=== PATIENT | male | born 1955 | race Caucasian/White ===

== ENCOUNTER → 2017-01-04 | Outpatient (CLI) | payer OTHER ==
[~2017-01-04] MED LIST: MULT-506 PO
--- NOTE | 2017-01-04 11:08 | DIAGNOSTIC IMAGING REPORT ---
CHEST 2 VIEWS ROUTINE CLINICAL HISTORY: J18.9 PNEUMONIA dyspnea COMPARISON STUDY: 03/10/2015 FINDINGS: The bones soft tissues and hemidiaphragms are normal. The cardiomediastinal silhouette is normal. The lungs are clear. The pulmonary vasculature is normal. IMPRESSION: Negative chest. Electronically signed by: Erickson Andrade M.D. 01/04/2017 11:07 AM Dictated Date/Time: 01/04/2017 11:06 AM
== END | disposition home or self-care (01) ==
LOC: C.RAD1850 10:41
PROVIDERS: ATTEND Family Medicine
DX: J18.9 Pneumonia, unspecified organism (principal)

== ENCOUNTER 2023-11-15 13:55 | Inpatient (IN) ==
--- NOTE | 2023-11-15 14:18 | ED Triage Note ---
Date of Service November 15, 2023 Provider in Triage Author: Nereida Solis History of Present Illness This patient was briefly evaluated while in triage. An abbreviated physical exam was performed. This patient is a 68-year-old Male who presents to the ED for evaluation of fever and right groin pain since Sunday. Pain radiates to RLQ and back occasionally too. Notes strong odor to urine and increased frequency. History of hernia repair bilaterally. Denies other abdominal surgeries. Denies history of frequent UTIs or kidney stones. Physical Exam Constitutional: alert and oriented x3. no acute distress. HEENT: normocephalic, atraumatic. normal conjunctiva.PERRLA. EOM's grossly intact. Respiratory: equal chest rise. normal respiratory effort, no accessory muscle use. Cardiovascular: regular rate and rhythm. MSK: moves all 4 extremities spontaneously Psych:appropriate mood and affect. Initial orders for labs and / or imaging were placed and patient was placed in the waiting area until a bed is available. Please see further documentation for the full ED course.
[2023-11-15 15:27] LABS: Basophils # (auto) 0.03 K/uL (0.00-0.20); Basophils % (auto) 0.2 %; Eosinophils # (auto) 0.12 K/uL (0.00-0.50); Eosinophils % (auto) 0.9 %; Hemoglobin 18.4 g/dl (14.0-18.0); Immature Granulocytes # (auto) 0.05 K/uL (0.01-0.20); Immature Granulocytes % (auto) 0.4 %; Lymphocytes % (auto) 6.1 %; Mean Corpuscular Hemoglobin 29.7 pg (25.0-34.0); Mean Corpuscular Hgb Conc 34.7 g/dL (32.0-36.0); Mean Corpuscular Volume 85.6 fL (80.0-100.0); Mean Platelet Volume 11.1 fL (9.4-12.4); Monocytes # (auto) 0.89 K/uL (0.11-0.59); Monocytes % (auto) 6.8 %; Neutrophils # (auto) 11.22 K/uL (1.40-6.50); Neutrophils % (auto) 85.6 %; Platelet Count 201 K/uL (130-400); RDW Coefficient of Variation 13.2 % (11.5-14.5); RDW Standard Deviation 41.1 fL (36.4-46.3); Red Blood Count 6.19 M/uL (4.70-6.10); White Blood Count 13.11 K/ul (4.8-10.8)
[2023-11-15 15:46] LABS: Albumin Globulin Ratio 1.1 (0.9-2); Appearance Urine Cloudy (Clear); BUN Creatinine Ratio 18.6 (10-20); Bacteria Urine Automated 4+ (Negative); Bilirubin Urine Negative (Negative); Bilirubin,Total 1.6 mg/dl (0.2-1.0); Blood Urine 3+ (Negative); Calcium 8.8 mg/dl (8.6-10.3); Color Urine Dark Yellow; Epithelial Cell Urine Auto 0-5 /lpf (0-5); Est GFR (African American) 88.4 ml/min; Est GFR (Non-African American) 76.2 ml/min; Globulin 3.5 gm/dl (2.5-4.0); Glucose Urine UA Negative (Negative); Ketones Urine 1+ (Negative); Leukocyte Esterase Urine 2+ (Negative); Nitrite Urine Positive (Negative); Potassium 3.9 mmol/L (3.5-5.1); Protein Urine 1+ (Negative); Specific Gravity Urine 1.025 (1.000-1.030); Total Protein 7.5 gm/dl (6.0-8.3); Urobilinogen Urine Positive (Negative); WBC Urine Automated >30 /hpf (0-5); pH Urine 5.5 (4.5-7.5)
[2023-11-15] MEDS ORDERED: cefTRIAXone SODIUM 2,000 MG/50 ML BAG IV STA (16:41)
--- NOTE | 2023-11-15 17:05 | Ultrasound Report ---
SCROTAL ULTRASOUND CLINICAL HISTORY: Right groin pain COMPARISON STUDY: CT of the abdomen and pelvis August 07, 2020. TECHNIQUE: Grayscale and color and duplex Doppler sonography of the scrotum was performed. FINDINGS: The right testis measures 3.3 x 3.2 cm and the left measures 3.4 x 2.5 x 1.9 cm. Color flow within each testis is symmetric. There is no testicular mass. A few tiny bilateral epididymal cysts are noted. There is mild hypervascularity of the right epididymal tail. A few benign right inguinal l ymph nodes were noted. No right groin abnormality was identified. IMPRESSION: 1. Normal sonographic appearance of the testes. 2. Mild hypervascularity of the right epididymal tail. This favors epididymitis. ACT 112: Negative or not required by law. Electronically signed by: Carlitos Prescott M.D. 11/15/2023 5:04 PM
[2023-11-15] MEDS ORDERED: SODIUM CHLORIDE 0.9% 1,000 ML IV ONE ×2 (18:07→19:49)
[2023-11-15] MEDS ORDERED: KETOROLAC TROMETHAMINE 15 MG/ML VIAL IV ONE (18:08)
[2023-11-15] MEDS ORDERED: OPTIRAY 320 500ml IV ONE (18:19)
--- NOTE | 2023-11-15 18:36 | CT Scan Report ---
CT SCAN OF THE ABDOMEN AND PELVIS WITH IV CONTRAST CLINICAL HISTORY: Right flank pain. COMPARISON STUDY: Abdominal CT dated 08/07/2020. TECHNIQUE: Following the IV administration of 86 cc of Optiray 320, CT scan of the abdomen and pelvi s is performed from the lung bases to the proximal femora. Images are reviewed in the axial, sagittal , and coronal planes. IV contrast was administered without complication. A dose lowering technique wa s utilized adhering to the principles of ALARA. CT DOSE: 1403.75 mGy.cm FINDINGS: Lung bases: The heart is normal in size and without pericardial effusion. The lung bases are clear no ting bibasilar atelectasis. There is a small hiatal hernia. Liver: The contrast-enhanced liver is normal in size, contour, and attenuation. There is no intrahepa tic biliary ductal dilatation. The hepatic veins and portal veins are patent. Gallbladder: Unremarkable. Spleen: Calcification of the splenic capsule is unchanged. The spleen is mildly enlarged measuring 14 .2 cm in length. Pancreas: Unremarkable. Adrenal glands: Unremarkable. Kidneys: The contrast enhanced kidneys are normal in size and without hydronephrosis. The kidneys enh ance symmetrically. Urothelial thickening and enhancement is identified involving the distal right ur eter. A 2.3 cm cyst is seen on the left. Abdominal vasculature: The abdominal aorta is normal in course and caliber noting mild to moderate at herosclerotic calcification. Bowel: There are scattered colonic diverticula without CT evidence of acute diverticulitis. No bowel obstruction is seen. The appendix is well-visualized and normal. Peritoneum: There is no intraperitoneal free air or abdominal ascites. There is a small fat-containin g umbilical hernia. Lymphadenopathy: None. Pelvic viscera: The prostate gland is markedly enlarged and heterogeneous. A multiloculated fluid col lection is suggested within the left aspect of the prostate gland on image #380. This measures 3.1 x 2.3 cm and is suspicious for a prostatic abscess. There is periprostatic inflammation. The bladder wa ll is thickened with pericystic inflammation. There are some vesicles also appear edematous. Skeletal structures: There is mild to moderate lumbosacral spondylosis. No lytic or blastic lesions a re seen. IMPRESSION: 1. There is evidence of cystitis/prostatitis with a probable 3.1 cm prostatic abscess. Correlate with clinical findings and urinalysis. 2. Urothelial thickening and enhancement is seen involving the distal right ureter. This may represen t ascending urinary tract infection. 3. Mild splenomegaly. 4. Additional findings as above. ACT 112: Negative or not required by law. Electronically signed by: Joel Beltran M.D. 11/15/2023 6:34 PM
[2023-11-15] MEDS ORDERED: PIPERACILLIN/TAZOBACTAM 4.5 GM/100 ML BAG IV ONE (18:59)
[2023-11-15] MEDS ORDERED: METOPROLOL SUCC 25MG EXT REL TAB PO STA (19:48)
[2023-11-15 20:05] LABS: Magnesium 2.1 mg/dl (1.7-2.4)
--- NOTE | 2023-11-15 20:29 | Urology Consultation ---
<Statement entered by Senthil Nye MD - 11/16/23 10:01> I have discussed Mr. Gutierrez's case with Ender Stahl PA-C and agree with the above documentation. CT findings concerning for prostatic abscess. To start with he needs antibiotics and supportive care. Urology will reevaluate whether he requires transurethral unroofing of prostatic abscess. Patient to be made n.p.o. at midnight. -Senthil Nye MD. Date of Consultation November 15, 2023 Assessment & Plan (1) Prostate abscess: The patient is being admitted on the hospitalist service. From a urologic perspective we recommend the following: Broad-spectrum antibiotics in form of Zosyn has been initiated and I would recommend continuous antibiotic Patient has evidence of urinary tract infection on urinalysis. A urine culture has been sent and is pending. I have also ordered blood cultures and we will follow for the results of these Provide analgesics Provide antiemetics Provide IV fluid for hydration Follow serial lab At the present time the patient is hemodynamically stable without tachycardia or fever. He does not have evidence of acute kidney. I do not feel an emergent urologic procedure is required at this time, but due to the size of the prostate abscess he may require cystoscopy with unroofing of this abscess. I would therefore recommend making the patient n.p.o. after midnight tonight (he may have clear liquids tonight) and he will tentatively be scheduled for cystoscopy tomorrow with [facility] physician group urology Additional recommendations be forthcoming based on his clinical course as unfolds History of Present Illness Reason for Consultation: Prostate abscess History of Present Illness This is a 68-year-old male who presented the emergency department secondary to approximately 3 days of fevers. Patient notes he has also had occasional shakes and chills and notes that his temperatures have been as high as 101. Since his fevers began he developed some right groin and right testicular pain which ultimately prompted his visit to the emergency department. He denies any pain in the saddle region. He does note urinary frequency without dysuria or hematuria. He does note that his urine stream appears to be somewhat weaker but he feels as though he is emptying his bladder completely. He denies any back or flank pain. Patient does note that he follows locally with Dr. Denis Davila of [facility] urology. He notes that he does have a history of enlarged prostate and has had prostate biopsies but to the best of his knowledge all of his biopsies have been negative for malignancy. The patient does note that his most recent oral intake of solid food was approximate 10:00 AM today. He has had some water at approximately 6:00 PM this evening Since arrival to the hospital patient has had labs and imaging which independent reviewed. The patient did have a scrotal ultrasound. This procedure showed the patient had some hypervascularity of the right epididymal tail favoring epididymitis. He also underwent a CT scan of the abdomen pelvis. This showed the patient had evidence of cystitis and prostatitis with a multiloculated fluid collection in the left aspect of the prostate gland. This collection measures approximately 3.1 x 2.3 cm and is concerning for a prostate abscess. No intraperitoneal free air or abdominal ascites was noted on this study. The appendix was noted to be normal on this study labs include a CBC her white blood cell count was elevated at 13.1 hemoglobin and hematocrit are 18.4 and 53.0. Platelet count was within the normal range. Chemistry profile showed sodium and potassium along with the BUN and creatinine were normal. Patient did have a urinalysis that showed cloudy urine which was positive for nitrites. There is also 2+ leukocyte Estrace and greater than 30 white blood cells per high-power field. There is 4+ bacteria on this study. At the time of my interview the patient was resting comfortably in bed and he was in no distress Allergies Allergy/AdvReac Type Severity Reaction Status Date / Time lisinopril AdvReac Mild Headache Verified 11/15/23 18:52 Home Medications Medication Instructions Recorded Confirmed Type multivitamin 1 tab PO DAILY 08/07/20 11/15/23 History ibuprofen 200 mg tablet 400 - 600 mg PO Q8 PRN Fever Or 11/15/23 11/15/23 History Pain metoprolol succinate 25 mg 25 mg PO QAM 11/15/23 11/15/23 History tablet,extended release 24 hr Patient History Surgical History History of esophagogastroduodenoscopy (EGD) S/P shoulder surgery Social History Smoking Status: Never smoker Preferred Language: Wallisian Feels Safe at Home: Yes Review of Systems Constitutional: + fever and + chills Ear, Nose, Mouth, Throat: no ear pain Respiratory: no cough Cardiovascular: no chest pain Gastrointestinal: as per Subjective / HPI Genitourinary: + as per Subjective / HPI Musculoskeletal: no back pain Integumentary: no rash Neurologic: no localized weakness Physical Exam Constitutional: WD/WN, vitals as above Eyes: no conjunctival abnormality ENMT: Ears: no hearing impairment and no external ear abnormality Mouth: no oropharynx abnormality Neck: trachea midline Respiratory: normal respiratory effort; no respiratory distress and no labored breathing Cardiovascular: Rate/Rhythm: regular rate and regular rhythm Gastrointestinal (Abdomen): Abdomen is soft and nonrigid. It is nondistended. There is no rebound tenderness or guarding. The patient did have pain with palpation in his right groin at the inguinal crease. I do not appreciate any hernias in this area. There is no skin discoloration or masses in this area Musculoskeletal: No calf tenderness Skin: no rashes Neurologic: moves all extremities Psychiatric: A+Ox3, euthymic affect Genitourinary: No CVA tenderness with percussion bilaterally. The patient's genital/perineum was examined. Patient had a normal appearing circumcised penis. There is no pain or masses with palpation of the left testicle. I do not appreciate any masses in the right testicle but the area of the right testicle was painful to palpation. There is no erythema or crepitus in the scrotum. There is no erythema or crepitus in the perineal area Of note, rectal exam was deferred at this time due to the noted prostate abscess on CT scan Results & Data Vital Signs (Past 12 Hours) Vital Signs Temp Pulse Pulse Resp BP BP Pulse Ox 11/15/23 18:43 85 16 160/92 H 94 11/15/23 17:27 92 H 18 144/92 H 96 11/15/23 14:16 36.6 C 99 H 18 161/104 H 95 O2 Del Method 11/15/23 18:43 Room Air 11/15/23 17:27 Room Air 11/15/23 14:16 Room Air PG Care Time/CCT Total # of Minutes Spent Total Time Spent with Patient: Total time spent is greater than 50% in coordination of care (as documented) at patient's floor/unit and/or counseling patient: Coding Level of Care Code 08940 INT INP/OBS CARE MIN Diagnoses Prostate abscess N41.2
--- NOTE | 2023-11-15 21:34 | History & Physical Report ---
Date of Service November 15, 2023 Assessment & Plan (1) Prostate abscess: Plan: Complicated UTI History of BPH No sepsis for now PAF, patient NSR hypertension, slightly elevated GERD/eosinophilic esophagitis Asymptomatic transaminitis GMF Ciprofloxacin Urology consult Re: Prostatic abscess Patient already seen at the ER by provider who recommends n.p.o. status after midnight in anticipation of procedure in a.m. Follow LFTs, liver ultrasound if with progression DVT prophylaxis. SCDs Re: Possible procedure Full code Text document was generated using [id number] voice recognition software. It may contain grammatical or spelling errors. Kindly contact undersigned for clarification of any documentation item in question. History of Present Illness Chief Complaint: Groin pain Primary Care Provider: Esequiel Choi DO History obtained from patient, family, and records. Medical history significant for PAF, hypertension, BPH, GERD/eosinophilic esophagitis, ROSENDO as per records, liposarcoma status post surgery. Last confinement September 2011 for RLE cellulitis. 3 days history of fever chills associated with achy right groin/testicular pain. No hematuria. No previous episodes. Denies upper abdominal pain, vomiting, jaundice. IV Zosyn administered at the ER. Medical History as above Surgical History : Carpal tunnel surgery, inguinal hernia repair, shoulder liposarcoma removal, talus fracture surgery, wrist surgery Family History : Prostate cancer, CAD Personal/Social history : Non-smoker, no EtOH intake, businessman Allergies Allergy/AdvReac Type Severity Reaction Status Date / Time lisinopril AdvReac Mild Headache Verified 11/15/23 18:52 Home Medications Medication Instructions Recorded Confirmed Type multivitamin 1 tab PO DAILY 08/07/20 11/15/23 History ibuprofen 200 mg tablet 400 - 600 mg PO Q8 PRN Fever Or 11/15/23 11/15/23 History Pain metoprolol succinate 25 mg 25 mg PO QAM 11/15/23 11/15/23 History tablet,extended release 24 hr Past Med/Surg History Surgical History History of esophagogastroduodenoscopy (EGD) S/P shoulder surgery Social History Smoking Status: Never smoker Second Hand Exposure: No; Do You Dip or Chew Tobacco: No; Hx Alcohol Use: No Hx Substance Use: No Preferred Language: Luxembourger Communication Ability: Effective Team Assistant Required: No Beliefs That Will Affect Care: None Current Living Situation: Spouse Other Information That Helps Us Care for You: No Feels Safe at Home: Yes Safety Concerns: Feels Safe At This Time Assistive Devices: None Review of Systems Review of Systems: As per HPI, all other systems reviewed and negative Physical Exam Physical Exam: GENERAL: Comfortable, pleasant, no respiratory distress SKIN: Normal color, warm HEENT: Partial alopecia, [place] palpebral conjunctivae, no ptosis, dry buccal mucosa NECK : Supple, no tenderness CHEST : CTA, no tenderness HEART : RRR, no obvious murmurs ABDOMEN: Some distention, suprapubic tenderness EXTREMITIES : No LE swelling/tenderness, no other conspicuous deformities noted NEUROLOGIC : Coherent, no facial asymmetry, no other gross focality Results & Data Results & Data Vital Signs (Past 12 Hours) Vital Signs Temp Pulse Pulse Resp BP BP Pulse Ox 11/15/23 21:00 93 11/15/23 18:43 85 16 160/92 H 94 11/15/23 17:27 92 H 18 144/92 H 96 11/15/23 14:16 36.6 C 99 H 18 161/104 H 95 O2 Del Method 11/15/23 21:00 Room Air 11/15/23 18:43 Room Air 11/15/23 17:27 Room Air 11/15/23 14:16 Room Air Laboratory Results Laboratory Results WBC 13.11 K/ul (4.8-10.8) H 11/15/23 14:35 RBC 6.19 M/uL (4.70-6.10) H 11/15/23 14:35 Hgb 18.4 g/dl (14.0-18.0) H 11/15/23 14:35 Hct 53.0 % (42.0-52.0) H 11/15/23 14:35 MCV 85.6 fL (80.0-100.0) 11/15/23 14:35 MCH 29.7 pg (25.0-34.0) 11/15/23 14:35 MCHC 34.7 g/dL (32.0-36.0) 11/15/23 14:35 RDW Std Deviation 41.1 fL (36.4-46.3) 11/15/23 14:35 RDW Coeff of Kiko 13.2 % (11.5-14.5) 11/15/23 14:35 Plt Count 201 K/uL (130-400) 11/15/23 14:35 MPV 11.1 fL (9.4-12.4) 11/15/23 14:35 Immature Gran % (Auto) 0.4 % 11/15/23 14:35 Neut % (Auto) 85.6 % 11/15/23 14:35 Lymph % (Auto) 6.1 % 11/15/23 14:35 [place] % (Auto) 6.8 % 11/15/23 14:35 Eos % (Auto) 0.9 % 11/15/23 14:35 Baso % (Auto) 0.2 % 11/15/23 14:35 Neut # (Auto) 11.22 K/uL (1.40-6.50) H 11/15/23 14:35 Lymph # (Auto) 0.80 K/uL (1.20-3.40) L 11/15/23 14:35 [place] # (Auto) 0.89 K/uL (0.11-0.59) H 11/15/23 14:35 Eos # (Auto) 0.12 K/uL (0.00-0.50) 11/15/23 14:35 Baso # (Auto) 0.03 K/uL (0.00-0.20) 11/15/23 14:35 Immature Gran # (Auto) 0.05 K/uL (0.01-0.20) 11/15/23 14:35 Sodium 136 mmol/L (136-145) 11/15/23 14:35 Potassium 3.9 mmol/L (3.5-5.1) 11/15/23 14:35 Chloride 102 mmol/L (98-107) 11/15/23 14:35 Carbon Dioxide 24 mmol/L (21-32) 11/15/23 14:35 Anion Gap 10 (3-11) 11/15/23 14:35 BUN 19 mg/dl (6-23) 11/15/23 14:35 Creatinine 1.02 mg/dl (0.6-1.4) 11/15/23 14:35 Est Cr Clr Drug Dosing 82.0 ml/min 11/15/23 14:35 Est GFR ( Amer) 88.4 ml/min 11/15/23 14:35 Est GFR (Non-Af Amer) 76.2 ml/min 11/15/23 14:35 BUN/Creatinine Ratio 18.6 (10-20) 11/15/23 14:35 Glucose 93 mg/dl (70-99(Fasting)) 11/15/23 14:35 Calcium 8.8 mg/dl (8.6-10.3) 11/15/23 14:35 Magnesium 2.1 mg/dl (1.7-2.4) 11/15/23 14:35 Total Bilirubin 1.6 mg/dl (0.2-1.0) H 11/15/23 14:35 AST 85 U/L (13-39) H 11/15/23 14:35 ALT 81 U/L (7-52) H 11/15/23 14:35 Alkaline Phosphatase 138 U/L (34-104) H 11/15/23 14:35 Total Protein 7.5 gm/dl (6.0-8.3) 11/15/23 14:35 Albumin 4.0 gm/dl (3.4-5.0) 11/15/23 14:35 Globulin 3.5 gm/dl (2.5-4.0) 11/15/23 14:35 Albumin/Globulin Ratio 1.1 (0.9-2) 11/15/23 14:35 Lipase 12 U/L (11-82) 11/15/23 14:35 Urine Color Dark Yellow 11/15/23 14:35 Urine Appearance Cloudy (Clear) A 11/15/23 14:35 Urine pH 5.5 (4.5-7.5) 11/15/23 14:35 Ur Specific [place] 1.025 (1.000-1.030) 11/15/23 14:35 Urine Protein 1+ (Negative) H 11/15/23 14:35 Urine Glucose (UA) Negative (Negative) 11/15/23 14:35 Urine Ketones 1+ (Negative) H 11/15/23 14:35 Urine Blood 3+ (Negative) H 11/15/23 14:35 Urine Nitrite Positive (Negative) A 11/15/23 14:35 Urine Bilirubin Negative (Negative) 11/15/23 14:35 Urine Urobilinogen Positive (Negative) H 11/15/23 14:35 Ur Leukocyte Esterase 2+ (Negative) H 11/15/23 14:35 Urine WBC (Auto) >30 /hpf (0-5) H 11/15/23 14:35 Urine RBC (Auto) 5-10 /hpf (0-4) H 11/15/23 14:35 U Hyaline Cast (Auto) 1-5 /lpf (0-5) 11/15/23 14:35 U Epithel Cells (Auto) 0-5 /lpf (0-5) 11/15/23 14:35 Urine Bacteria (Auto) 4+ (Negative) H 11/15/23 14:35 Impressions Scrotum Ultrasound 11/15/23 14:21 SCROTAL ULTRASOUND CLINICAL HISTORY: Right groin pain COMPARISON STUDY: CT of the abdomen and pelvis August 07, 2020. TECHNIQUE: Grayscale and color and duplex Doppler sonography of the scrotum was performed. FINDINGS: The right testis measures 3.3 x 3.2 cm and the left measures 3.4 x 2.5 x 1.9 cm. Color flow within each testis is symmetric. There is no testicular mass. A few tiny bilateral epididymal cysts are noted. There is mild hypervascularity of the right epididymal tail. A few benign right inguinal lymph nodes were noted. No right groin abnormality was identified. IMPRESSION: 1. Normal sonographic appearance of the testes. 2. Mild hypervascularity of the right epididymal tail. This favors epididymitis. ACT 112: Negative or not required by law. Electronically signed by: Carlitos Prescott M.D. 11/15/2023 5:04 PM Abdomen/Pelvis CT 11/15/23 18:07 CT SCAN OF THE ABDOMEN AND PELVIS WITH IV CONTRAST CLINICAL HISTORY: Right flank pain. COMPARISON STUDY: Abdominal CT dated 08/07/2020. TECHNIQUE: Following the IV administration of 86 cc of Optiray 320, CT scan of the abdomen and pelvis is performed from the lung bases to the proximal femora. Images are reviewed in the axial, sagittal, and coronal planes. IV contrast was administered without complication. A dose lowering technique was utilized adhering to the principles of ALARA. CT DOSE: 1403.75 mGy.cm FINDINGS: Lung bases: The heart is normal in size and without pericardial effusion. The lung bases are clear noting bibasilar atelectasis. There is a small hiatal hernia. Liver: The contrast-enhanced liver is normal in size, contour, and attenuation. There is no intrahepatic biliary ductal dilatation. The hepatic veins and portal veins are patent. Gallbladder: Unremarkable. Spleen: Calcification of the splenic capsule is unchanged. The spleen is mildly enlarged measuring 14.2 cm in length. Pancreas: Unremarkable. Adrenal glands: Unremarkable. Kidneys: The contrast enhanced kidneys are normal in size and without hydronephrosis. The kidneys enhance symmetrically. Urothelial thickening and enhancement is identified involving the distal right ureter. A 2.3 cm cyst is seen on the left. Abdominal vasculature: The abdominal aorta is normal in course and caliber noting mild to moderate atherosclerotic calcification. Bowel: There are scattered colonic diverticula without CT evidence of acute div erticulitis. No bowel obstruction is seen. The appendix is well-visualized and normal. Peritoneum: There is no intraperitoneal free air or abdominal ascites. There is a small fat-containing umbilical hernia. Lymphadenopathy: None. Pelvic viscera: The prostate gland is markedly enlarged and heterogeneous. A multiloculated fluid collection is suggested within the left aspect of the prostate gland on image #380. This measures 3.1 x 2.3 cm and is suspicious for a prostatic abscess. There is periprostatic inflammation. The bladder wall is thickened with pericystic inflammation. There are some vesicles also appear edematous. Skeletal structures: There is mild to moderate lumbosacral spondylosis. No lytic or blastic lesions are seen. IMPRESSION: 1. There is evidence of cystitis/prostatitis with a probable 3.1 cm prostatic abscess. Correlate with clinical findings and urinalysis. 2. Urothelial thickening and enhancement is seen involving the distal right ureter. This may represent ascending urinary tract infection. 3. Mild splenomegaly. 4. Additional findings as above. ACT 112: Negative or not required by law. Electronically signed by: Joel Beltran M.D. 11/15/2023 6:34 PM Diagnostic Findings EKG as per my interpretation : Rate 80, NSR, normal axis, no ischemia, QTc 440
[2023-11-15] MEDS ORDERED: ACETAMINOPHEN 500 MG TAB PO PRN (21:38)
[2023-11-15] MEDS ORDERED: MoRPHine SULFATE 4 MG/ML 1 ML CARP\\VIAL IV PRN (21:38)
[2023-11-15] MEDS ORDERED: oxyCODONE HCL IR 5 MG TAB (IMMEDIATE RELEASE) PO PRN (21:38)
[2023-11-15] MEDS ORDERED: PROMETHAZINE HCL 6.25 MG in SODIUM CHLORIDE 0.9% 50 ML IV PRN (21:38)
--- NOTE | 2023-11-15 23:03 | Emergency Department Note ---
Impression & Plan Sepsis, Prostate abscess, Acute epididymitis ED Provider Note NAME: TAHIRA SONI AGE: 68 SEX: M : 1955 ARRIVES VIA: Walk-In INFORMANT: Patient ED PROVIDER(S): Stephen Coronel DO CHIEF COMPLAINT: Right groin pain HPI: Patient is a 68-year-old male who presents ER for right groin pain which has been going on since Sunday. He admits to feeling hot and cold. Does have some nausea but no vomiting. Does feel little lightheaded. No chest pain or shortness of breath. No dysuria urgency or frequency. He notes the pain is now focal in his right testicle. No pain with moving his bowels. ADDITIONAL HISTORY OBTAINED: Per HPI Chronic Medical/Social Conditions Affecting Care: Per HPI PAST MEDICAL HISTORY:See Below PAST SURGICAL HISTORY:See Below FAMILY HISTORY:See Below SOCIAL HISTORY:See Below HOME MEDICATIONS:See Below ALLERGIES:See Below VITALS:See Below PHYSICAL EXAMINATION: GENERAL: Sitting up in bed, alert, slightly ill-appearing, disheveled EYE EXAM: normal conjunctiva. PERRL and EOM's grossly intact. OROPHARYNX: no exudate, no erythema, lips, buccal mucosa, and tongue normal and mucous membranes are moist NECK: supple, no nuchal rigidity, no adenopathy, non-tender LUNGS: Clear to auscultation. Normal chest wall mechanics HEART: no murmurs, S1 normal and S2 normal ABDOMEN: abdomen soft, non-tender, normo-active bowel sounds, no masses, no rebound or guarding. : Right testicle is tender diffusely and slightly erythematous. UPPER EXTREMITIES: upper extremities are grossly normal. LOWER EXTREMITIES: No pitting edema. NEURO EXAM: Normal sensorium, cranial nerves II-XII grossly intact, normal speech, no gross weakness of arms, no gross weakness of legs. No drift. Finger to nose intact. Gross sensation intact. MEDICAL DECISION MAKING: Patient is a 68-year-old male who presents ER for the above-stated complaint. IV was established blood work was obtained. Labs show a leukocytosis of 13,000. Hemoglobin 18. BMP was unremarkable. T. bili at 1.6. LFTs was slightly elevated. Lipase was normal. UA is consistent with UTI. Ultrasound shows epididymitis. CT abdomen pelvis shows cystitis, prostatitis as well as prostate abscess. Patient was initially given Rocephin and fluids and then changed to Zosyn. Discussed with urology and they were agreeable for having patient admitted here. Discussed with hospitalist for further evaluation management treatment. Consults/Care Managements Discussions: Per MDM Triage Nursing notes reviewed. Limited review of prior medical records performed Vital Signs: reviewed and remarkable for tachy Differential diagnosis: Differential diagnosis includes etiologies such as sepsis, UTI, pneumonia, metabolic, electrolyte abnormalities, cardiac sources, intracerebral event, toxicologic, neurological, as well as others were entertained. ER treatment provided: See below Diagnostics interpreted by me include EKG and cardiac monitoring as listed below: -Cardiac Monitoring: An order was placed for continuous cardiac monitoring. The monitor shows a rate of 80 with sinus rhythm. -ECG: none -Laboratory studies:Interpreted by me as stated above in MDM and shown below. Imaging studies: Xrays: As interpreted by me:none CTs show: CT abdomen pelvis per my preliminary interpretation showed no obvious bowel obstruction CT abdomen pelvis per radiology showed abscess of the prostate Procedures:none Critical Care: None Past Med/Surg History Surgical History History of esophagogastroduodenoscopy (EGD) S/P shoulder surgery Social History Smoking Status: Never smoker Preferred Language: Mohawk Feels Safe at Home: Yes Allergies Allergies Allergy/AdvReac Type Severity Reaction Status Date / Time lisinopril AdvReac Mild Headache Verified 11/15/23 18:52 Home Meds Home Medications Medication Instructions Recorded Confirmed multivitamin 1 tab PO DAILY 08/07/20 11/15/23 ibuprofen 200 mg tablet 400 - 600 mg PO Q8 PRN Fever Or 11/15/23 11/15/23 Pain metoprolol succinate 25 mg 25 mg PO QAM 11/15/23 11/15/23 tablet,extended release 24 hr Results & Data (ED) Vital Signs Vital Signs - 24 hr 11/15/23 14:16 11/15/23 17:27 11/15/23 18:43 Temperature 36.6 C Temperature Source Temporal Artery Scan Pulse Rate 99 H Pulse Rate [Finger] 92 H 85 Pulse Rate from SpO2 Sensor Pulse Rhythm [Finger] Regular Pulse Strength [Finger] Normal Respiratory Rate 18 18 16 Respiratory Effort / Characteristics Non-Labored Spontaneous Non-Labored Spontaneous Respiratory Depth Normal Normal Respiratory Pattern Regular Regular Blood Pressure 161/104 H Blood Pressure [Right Arm] 144/92 H 160/92 H Blood Pressure Mean 123 Blood Pressure Mean [Right Arm] 109 114 Blood Pressure Position [Right Arm] Sitting Pulse Oximetry 95 96 94 Oxygen Delivery Method Room Air Room Air Room Air Sepsis Recent Fever Within 48 Hours Yes Sepsis New/Unexplained Change in Mental Status No Sepsis Action Taken by Nursing No Action Required 11/15/23 20:37 11/15/23 21:00 11/15/23 21:00 Temperature Temperature Source Pulse Rate 76 Pulse Rate [Finger] Pulse Rate from SpO2 Sensor 76 Pulse Rhythm [Finger] Pulse Strength [Finger] Respiratory Rate 22 Respiratory Effort / Characteristics Respiratory Depth Respiratory Pattern Blood Pressure 146/108 H Blood Pressure [Right Arm] Blood Pressure Mean 119 Blood Pressure Mean [Right Arm] Blood Pressure Position [Right Arm] Pulse Oximetry 93 93 Oxygen Delivery Method Room Air Sepsis Recent Fever Within 48 Hours Sepsis New/Unexplained Change in Mental Status Sepsis Action Taken by Nursing 11/15/23 21:00 Temperature Temperature Source Pulse Rate 79 Pulse Rate [Finger] Pulse Rate from SpO2 Sensor 79 Pulse Rhythm [Finger] Pulse Strength [Finger] Respiratory Rate 21 Respiratory Effort / Characteristics Respiratory Depth Respiratory Pattern Blood Pressure Blood Pressure [Right Arm] Blood Pressure Mean Blood Pressure Mean [Right Arm] Blood Pressure Position [Right Arm] Pulse Oximetry 93 Oxygen Delivery Method Sepsis Recent Fever Within 48 Hours Sepsis New/Unexplained Change in Mental Status Sepsis Action Taken by Nursing Laboratory Data 11/15/23 14:35 11/15/23 14:35 Lab Results 11/15/23 Range/Units 14:35 WBC 13.11 H (4.8-10.8) K/ul RBC 6.19 H (4.70-6.10) M/uL Hgb 18.4 H (14.0-18.0) g/dl Hct 53.0 H (42.0-52.0) % MCV 85.6 (80.0-100.0) fL MCH 29.7 (25.0-34.0) pg MCHC 34.7 (32.0-36.0) g/dL RDW Std Deviation 41.1 (36.4-46.3) fL RDW Coeff of Kiko 13.2 (11.5-14.5) % Plt Count 201 (130-400) K/uL MPV 11.1 (9.4-12.4) fL Immature Gran % (Auto) 0.4 % Neut % (Auto) 85.6 % Lymph % (Auto) 6.1 % [place] % (Auto) 6.8 % Eos % (Auto) 0.9 % Baso % (Auto) 0.2 % Neut # (Auto) 11.22 H (1.40-6.50) K/uL Lymph # (Auto) 0.80 L (1.20-3.40) K/uL [place] # (Auto) 0.89 H (0.11-0.59) K/uL Eos # (Auto) 0.12 (0.00-0.50) K/uL Baso # (Auto) 0.03 (0.00-0.20) K/uL Immature Gran # (Auto) 0.05 (0.01-0.20) K/uL Sodium 136 (136-145) mmol/L Potassium 3.9 (3.5-5.1) mmol/L Chloride 102 (98-107) mmol/L Carbon Dioxide 24 (21-32) mmol/L Anion Gap 10 (3-11) BUN 19 (6-23) mg/dl Creatinine 1.02 (0.6-1.4) mg/dl Est Cr Clr Drug Dosing 82.0 ml/min Est GFR ( Amer) 88.4 ml/min Est GFR (Non-Af Amer) 76.2 ml/min BUN/Creatinine Ratio 18.6 (10-20) Glucose 93 (70-99(Fasting)) mg/dl Calcium 8.8 (8.6-10.3) mg/dl Magnesium 2.1 (1.7-2.4) mg/dl Total Bilirubin 1.6 H (0.2-1.0) mg/dl AST 85 H (13-39) U/L ALT 81 H (7-52) U/L Alkaline Phosphatase 138 H (34-104) U/L Total Protein 7.5 (6.0-8.3) gm/dl Albumin 4.0 (3.4-5.0) gm/dl Globulin 3.5 (2.5-4.0) gm/dl Albumin/Globulin Ratio 1.1 (0.9-2) Lipase 12 (11-82) U/L Urine Color Dark Yellow Urine Appearance Cloudy A (Clear) Urine pH 5.5 (4.5-7.5) Ur Specific [place] 1.025 (1.000-1.030) Urine Protein 1+ H (Negative) Urine Glucose (UA) Negative (Negative) Urine Ketones 1+ H (Negative) Urine Blood 3+ H (Negative) Urine Nitrite Positive A (Negative) Urine Bilirubin Negative (Negative) Urine Urobilinogen Positive H (Negative) Ur Leukocyte Esterase 2+ H (Negative) Urine WBC (Auto) >30 H (0-5) /hpf Urine RBC (Auto) 5-10 H (0-4) /hpf U Hyaline Cast (Auto) 1-5 (0-5) /lpf U Epithel Cells (Auto) 0-5 (0-5) /lpf Urine Bacteria (Auto) 4+ H (Negative) Administered Medications Discontinued Medications Ceftriaxone Sodium (Rocephin) 2,000 mg in 50 mls @ 100 mls/hr IV NOW STA Stop: 11/15/23 17:10 Last Infusion: 11/15/23 19:06 Dose: Infused Documented By: Admin: 11/15/23 17:28 Dose: 100 mls/hr Documented By: LONDON Sodium Chloride (Nss) 1,000 mls @ 999 mls/hr IV .Q1H1M ONE Stop: 11/15/23 19:07 Last Infusion: 11/15/23 20:46 Dose: Infused Documented By: Admin: 11/15/23 19:06 Dose: 999 mls/hr Documented By: ROBERT Piperacillin Sod/Tazobactam Sod (Zosyn) 4.5 gm in 100 mls @ 200 mls/hr IV NOW ONE Stop: 11/15/23 19:28 Last Infusion: 11/15/23 20:46 Dose: Infused Documented By: Admin: 11/15/23 19:08 Dose: 200 mls/hr Documented By: ROBERT Ioversol (Optiray 320 500ml) 86 ml IV ONCE ONE Stop: 11/15/23 18:20 Last Admin: 11/15/23 18:20 Dose: 86 ml Documented By: GIRISH Ketorolac Tromethamine (Ketorolac Tromethamine 15 Mg/Ml Vial) 15 mg IV NOW ONE Stop: 11/15/23 18:09 Last Admin: 11/15/23 19:07 Dose: 15 mg Documented By: ROBERT Metoprolol Succinate (Metoprolol Succ 25mg Ext Rel Tab) 25 mg PO NOW STA Stop: 11/15/23 19:49 Last Admin: 11/15/23 20:40 Dose: 25 mg Documented By: ROBERT Imaging Data Radiologist's Impression: Scrotum Ultrasound 11/15/23 14:21 SCROTAL ULTRASOUND CLINICAL HISTORY: Right groin pain COMPARISON STUDY: CT of the abdomen and pelvis August 07, 2020. TECHNIQUE: Grayscale and color and duplex Doppler sonography of the scrotum was performed. FINDINGS: The right testis measures 3.3 x 3.2 cm and the left measures 3.4 x 2.5 x 1.9 cm. Color flow within each testis is symmetric. There is no testicular mass. A few tiny bilateral epididymal cysts are noted. There is mild hypervascularity of the right epididymal tail. A few benign right inguinal lymph nodes were noted. No right groin abnormality was identified. IMPRESSION: 1. Normal sonographic appearance of the testes. 2. Mild hypervascularity of the right epididymal tail. This favors epididymitis. ACT 112: Negative or not required by law. Electronically signed by: Carlitos Prescott M.D. 11/15/2023 5:04 PM Abdomen/Pelvis CT 11/15/23 18:07 CT SCAN OF THE ABDOMEN AND PELVIS WITH IV CONTRAST CLINICAL HISTORY: Right flank pain. COMPARISON STUDY: Abdominal CT dated 08/07/2020. TECHNIQUE: Following the IV administration of 86 cc of Optiray 320, CT scan of the abdomen and pelvis is performed from the lung bases to the proximal femora. Images are reviewed in the axial, sagittal, and coronal planes. IV contrast was administered without complication. A dose lowering technique was utilized adhering to the principles of ALARA. CT DOSE: 1403.75 mGy.cm FINDINGS: Lung bases: The heart is normal in size and without pericardial effusion. The lung bases are clear noting bibasilar atelectasis. There is a small hiatal hernia. Liver: The contrast-enhanced liver is normal in size, contour, and attenuation. There is no intrahepatic biliary ductal dilatation. The hepatic veins and portal veins are patent. Gallbladder: Unremarkable. Spleen: Calcification of the splenic capsule is unchanged. The spleen is mildly enlarged measuring 14.2 cm in length. Pancreas: Unremarkable. Adrenal glands: Unremarkable. Kidneys: The contrast enhanced kidneys are normal in size and without hydronephrosis. The kidneys enhance symmetrically. Urothelial thickening and enhancement is identified involving the distal right ureter. A 2.3 cm cyst is seen on the left. Abdominal vasculature: The abdominal aorta is normal in course and caliber noting mild to moderate atherosclerotic calcification. Bowel: There are scattered colonic diverticula without CT evidence of acute diverticulitis. No bowel obstruction is seen. The appendix is well-visualized and normal. Peritoneum: There is no intraperitoneal free air or abdominal ascites. There is a small fat-containing umbilical hernia. Lymphadenopathy: None. Pelvic viscera: The prostate gland is markedly enlarged and heterogeneous. A multiloculated fluid collection is suggested within the left aspect of the prostate gland on image #380. This measures 3.1 x 2.3 cm and is suspicious for a prostatic abscess. There is periprostatic inflammation. The bladder wall is thickened with pericystic inflammation. There are some vesicles also appear edematous. Skeletal structures: There is mild to moderate lumbosacral spondylosis. No lytic or blastic lesions are seen. IMPRESSION: 1. There is evidence of cystitis/prostatitis with a probable 3.1 cm prostatic abscess. Correlate with clinical findings and urinalysis. 2. Urothelial thickening and enhancement is seen involving the distal right ureter. This may represent ascending urinary tract infection. 3. Mild splenomegaly. 4. Additional findings as above. ACT 112: Negative or not required by law. Electronically signed by: Joel Beltran M.D. 11/15/2023 6:34 PM Discharge Plan Visit Data Chief Complaint: Abdominal Pain Stated Complaint: RLQ PAIN ED Provider: Stephen Coronel Discharge Problem: Sepsis, Prostate abscess, Acute epididymitis Patient Disposition: Admitted As Inpatient Discharge Instructions Interventions: ED Discharge Assessment Last Done: 11/15/23 22:31 Discharge Problem: Sepsis Qualifiers: Sepsis type: sepsis due to unspecified organism Sepsis acute organ dysfunction status: unspecified Qualified Code(s): A41.9 - Sepsis, unspecified organism
--- OUTSIDE RECORDS SUMMARY | 2023-11-16 00:22 | External Medical Summary | Summary of Care ---
Author Name Unknown Organization [facility] Address [address] [place] [address] Phone [phone] Care Team Providers Care Talent Manager Name Role Phone Rianna Choi DO Primary Care Provider Encounter Details Date Type Department Care Team Description 08/16/2023 Refill Family Practice [facility] [address] [place] [address] Rianna Choi DO [address] [place] [address] Paroxysmal A-fib (HCC) Allergies Active Allergy Reactions Severity Noted Date Comments Fluticasone Tachycardia 01/19/2022 Lisinopril Medium 10/19/2015 Other reaction(s): head ache, Headache, Other (see comments) Severe Headache Sulfamethoxazole-Trimethopri m 05/18/2021 Other reaction(s): rash documented as of this encounter (statuses as of 08/16/2023) Medications Medication Sig Dispensed Refills Start Date End Date Status Omeprazole 40 MG Oral Capsule Delayed Release (PriLOSEC) daily . 0 04/17/2021 Active Mens Multi Vitamin & Mineral Oral Tablet Take by mouth . 0 Active Tamsulosin HCl 0.4 MG Oral Capsule (Flomax) TAKE 1 CAPSULE BY MOUTH EVERY MORNING 90 Capsule 3 08/02/2023 Active Metoprolol Succinate ER 25 MG Oral Tablet Extended Release 24 Hour (toPROL XL)Indications:Pa roxysmal A-fib (HCC) Take 1 Tablet by mouth in the morning. 90 Tablet 3 08/16/2023 Active Metoprolol Succinate ER 25 MG Oral Tablet Extended Release 24 Hour (toPROL XL)Indications:Pa roxysmal A-fib (HCC) Take 1 Tablet by mouth in the morning. 90 Tablet 3 06/20/2023 08/16/2023 Discontinued (Refill) documented as of this encounter (statuses as of 08/16/2023) Active Problems Problem Noted Date ROSENDO (obstructive sleep apnea) 08/27/2021 Overview: Mild and positional. Untreated. 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 Paroxysmal A-fib 06/09/2021 Gastroesophageal reflux disease with eso phagitis 06/09/2021 documented as of this encounter (statuses as of 08/16/2023) Immunizations Name Administration Dates Next Due TDAP (age 10 and older)(Boostrix) 02/08/2023 documented as of this encounter Social History Tobacco Use Types Packs/Day Years Used Date Smoking Tobacco: Never Smokeless Tobacco: Never Alcohol Use Standard Drinks/Week Comments Never 0 (1 standard drink = 0.6 oz pur e alcohol) Sex Assigned at Date Recorded Not on file Job Start Date Occupation Industry Not on file Not on file Not on file documented as of this encounter Miscellaneous Notes * Telephone Encounter - Rianna Choi DO - 08/16/2023 12:52 PM EDT Signed Prescriptions: Disp Refills Metoprolol Succinate ER 25 MG Oral Tablet *90 Tab*3 Sig: Take 1 Tablet by mouth in the morning.Authorizing Provider: RIANNA CHOI * Telephone Encounter - Veronique Prince LPN - 08/16/2023 12:35 PM EDT [facility] Called pt, says that he used to use [facility], but now uses [facility] because that is who his insurance wants him to use. Please just do a brand new script for Metoprolol to [facility]. Thanks * Telephone Encounter - ROSENDO Sauer - 08/16/2023 11:42 AM EDT Mail Order [facility] is requesting clarification for the Metoprolol Succinate ER 25 MG ER TAB. They want clarification on the directions and quantity to dispense. Please advice. Thank you. documented in this encounter Plan of Treatment Upcoming Encounters Date Type Specialty Care Team Description 12/28/2023 Office Visit Cardiology Erickson Bean PA-C [address] [place] [address] 02/12/2024 Office Visit Family Medicine Rianna Choi DO [address] [place] [address] 02/20/2024 Office Visit Urology Denis Davila MD [address] [place] [address] [place] [address] Health Maintenance Due Date Last Done Comments COVID-19 Vaccine (#1) 1955 Cologuard 2002 Fecal Occult Blood Test 2002 Sigmoidoscopy 2002 Zoster Vaccines (1 of 2) 2007 Pneumococcal Vaccine: 65+ Years (1 - PCV) 2022 Influenza Vaccine (FLU shot) (#1) 2023 Depression Screening 02/09/2024 02/08/2023 Diabetes Screening 07/23/2026 07/23/2023, 0 07/23/2023, 06/01/2022, Additional history exists Lipid Panel 07/23/2028 07/23/2023, 04/10/2022 Colonoscopy 03/25/2031 03/25/2021, 03/25/2021 Colorectal Cancer Screening 03/25/2031 DTaP,Tdap,and Td Vaccines (3 - Td or Tdap) 02/08/2033 02/08/2023, 11/05/2007 GARDASIL-HPV IMMUNIZATION SERIES Aged Out No longer eligible based on patient's age to complete this topic Hepatitis B Aged Out No longer eligi ble based on patient's age to complete this topic MENINGOCOCCAL (MENACTRA/MENVEO) Aged Out No longer eligible based on patient's age to complete this topic documented as of this encounter Medical Devices Implanted Type Area Private Household Worker Device Identifier Shelf Expiration Date Model / Serial / Lot Mesh 3dmax Mid Lg Lt 4x6in - [id number] Implanted:Qty: 1 on 06/01/2022 by Erickson Brown MD at OR [facility] Mesh Left: Groin CR BARD : DAVOL 12/02/2025 [id number] / / [id number] documented as of this encounter Visit Diagnoses Diagnosis Paroxysmal A-fib (HCC) Atrial fibrillation documented in this encounter Advance Directives Latest Code Status on File Code Status Date Activated Date Inactivated Comments Full Code 06/01/2022 8:18 AM 06/01/2022 7:45 PM This order reflects the patients wishes and were consensually agreed upon. Care Teams Talent Manager Relationship Specialty Start Date End Date Rianna Choi DO [address] [place] [id number] PCP - General Family Medicine 01/19/22 documented as of this encounter
--- OUTSIDE RECORDS SUMMARY | 2023-11-16 00:22 | External Medical Summary | Summary of Care ---
Author Name Unknown Organization [facility] Address [address] [facility] [place] [address] Phone [phone] Care Team Providers Care Urban Gardening Specialist Name Role Phone Esequiel Choi DO Primary Care Provider Reason for Visit * Reason Onset Date Comments Health Maintenance 09/18/2023 Encounter Details Date Type Department Care Team (Late st Contact Info) Description 09/18/2023 Telephone Family Practice [facility] [address] [place] [address] Esequiel Choi DO [address] [place] [address] Health Maintenance Allergies Active Allergy Reactions Criticality Noted Date Comments Fluticasone Tachycardia 01/19/2022 Lisinopril Medium 10/19/2015 Other reaction(s): head ache, Headache, Other (see comments) Severe Headache Sulfamethoxazole-Trimethopr im 05/18/2021 Other reaction(s): rash documented as of this encounter (statuses as of 09/18/2023) Medications Medication Sig Dispensed Refills Start Date [...] Oral Tablet Extended Release 24 Hour (toPROL XL)Indications:Parox ysmal A-fib (HCC) Take 1 Tablet by mouth in the morning. 90 Tablet 3 08/16/2023 Active documented as of this encounter (statuses as of 09/18/2023) Active Problems Problem Noted Date Diagnosed Date ROSENDO (obstructive sleep apnea) 08/27/2021 Overview: Mild and positional. Untreated. 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 Paroxysmal A-fib 06/09/2021 Gastroesophageal reflux disease with esophagitis 06/09/2021 documented as of this encounter (statuses as of 09/18/2023) Immunizations Name Administration Dates Next Due TDAP (age 10 and older)(Boostrix) 02/08/2023 documented as of this encounter Social History Tobacco Use Types Packs/Day Years Used Date Smoking Tobacco: Never Smokeless Tobacco: Never Alcohol Use Standard Drinks/Week Comments Never 0 (1 standard drink = 0.6 oz pur e alcohol) PHQ-2 Answer Date Recorded PHQ Adult Total Score 0 02/08/2023 Sex and Gender Information Value Date Recorded Sex Assigned at Not on file Gender Identity Not on file Sexual Orientation Not on file Job Start Date Occupation Industry Not on file Not on file Not on file documented as of this encounter Miscellaneous Notes * Telephone Encounter - Zita Jacobs LPN - 09/18/2023 1:27 PM EST Care Gaps Comprehensive Care Outreach Last Office/Telemedicine Visit: 02/08/2023 (in office), Visit date not found (telemedicine) Next Office Visit: 02/12/2024 Hemoglobin AIC Results: Lab Results Component Value Date/Time HEMOGLOBIN A1C - [facility] 5.6 07/23/2023 08:38 AM HEMOGLOBIN A1C - [facility] 5.7 (H) 04/10/2022 08:55 AM Reviewed Health Maintenance below: Health Maintenance Topic Date Due COVID-19 Vaccine (1) Never done Zoster Vaccines (1 of 2) Never done Pneumococcal Vaccine: 65+ Years (1 - PCV) Never done Influenza Vaccine (FLU shot) (1) Never done Care Gap Outreach Action Taken: Outreach not indicated documented in this encounter Plan of Treatment Upcoming Encounters Date Type Department Care Team (Late st Contact Info) Description 12/28/2023 8:00 AM EST Office Visit [facility], [facility] [address] [facility] [facility] [place] [address] Erickson Bean PA-C [address] [place] [address] 02/12/2024 9:40 AM EDT Office Visit Family Practice [facility] [address] [facility] [facility] [place] [address] Esequiel Choi DO [address] [place] [address] 02/20/2024 8:15 AM EDT Office Visit Urology, [facility] [address] [facility] [place] [address] Denis Davila MD [address] [place] [address] [place] [address] Health Maintenance Due Date Last Done Comments [...] this encounter Medical Devices Implanted Type Area Slot Floor Person Device Identifier Shelf Expiration Date Model / Serial / Lot Mesh 3dmax Mid Lg Lt 4x6in - [id number] Implanted:Qty: 1 on 06/01/2022 by Erickson Brown MD at OR [facility] Mesh Left: Groin CR BARD : DAVOL 12/02/2025 [id number] / / [id number] documented as of this encounter Advance Directives Latest Code Status on File Code Status Date Activated Date Inactivated Comments Full Code 06/01/2022 8:18 AM 06/01/2022 7:45 PM This order reflects the patients wishes and were consensually agreed upon. Care Teams Urban Gardening Specialist Relationship Specialty Start Date End Date Esequiel Choi DO [address] [place] [address] PCP - General Family Medicine 01/19/22 documented as of this encounter
--- OUTSIDE RECORDS SUMMARY | 2023-11-16 00:23 | External Medical Summary | Summary of Care ---
Author Name Unknown Organization [facility] Address [address] [place] [address] Phone [phone] Care Team Providers Care Cnc Milling Machine Operator Name Role Phone Esequiel Choi Primary Care Provider Reason for Visit * Reason Comments Outpatient Testing Encounter Details Date Type Department Care Team Description 07/23/2023 Laboratory Laboratory, [facility] [address] [facility] [place] [id number] [facility] 132 [facility] [place] [address] HTN, goal below 130/80; Dyslipidemia, goal LDL below 100; Prediabetes Allergies Active Allergy Reactions Severity Noted Date Comments Fluticasone Tachycardia 01/19/2022 Lisinopril Medium 10/19/2015 Other reaction(s): head ache, Headache, Other (see comments) Severe Headache Sulfamethoxazole-Trimethopri m 05/18/2021 Other reaction(s): rash documented as of this encounter (statuses as of 07/23/2023) Medications Medication Sig Dispensed Refills Start Date End Date Status Omeprazole 40 MG Oral Capsule Delayed Release (PriLOSEC) daily . 0 04/17/2021 Active Tamsulosin HCl 0.4 MG Oral Capsule (Flomax) Take by mouth 1 Capsule in the morning. 90 Capsule 3 07/25/2022 Active Mens Multi Vitamin & Mineral Oral Tablet Take by mouth . 0 Active Metoprolol Succinate ER 25 MG Oral Tablet Extended Release 24 Hour (toPROL XL)Indications:Parox ysmal A-fib (HCC) Take 1 Tablet by mouth in the morning. 90 Tablet 3 06/20/2023 Active documented as of this encounter (statuses as of 07/23/2023) Active Problems Problem Noted Date ROSENDO (obstructive sleep apnea) 08/27/2021 Overview: Mild and positional. Untreated. 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 Paroxysmal A-fib 06/09/2021 Gastroesophageal reflux disease with eso phagitis 06/09/2021 documented as of this encounter (statuses as of 07/23/2023) Immunizations Name Administration Dates Next Due TDAP [...] on file documented as of this encounter Plan of Treatment Upcoming Encounters Date Type Specialty Care Team Description 12/28/2023 Office Visit Cardiology Erickson Bean, PANiyahC [address] [place] [address] 02/12/2024 Office Visit Family Medicine Esequiel Choi DO [address] [place] [address] 02/20/2024 Office Visit Urology Denis Davila MD 27 [facility] [place] [address] [place] [address] Pending Results Name Type Priority Associated Diagnoses Date /Time COMPREHENSIVE METABOLIC PANEL Lab Routine HTN, goal below 130/80 Dyslipidemia, goal LDL below 100 07/23/2023 8:38 AM EDT HEMOGLOBIN A1C Lab Routine Prediabetes 07/23/2023 8:38 AM EDT ALBUMIN / CREATININE RATIO, URINE Lab Routine HTN, goal below 130/80 07/23/2023 8:38 AM EDT LIPID PANEL WITH DIRECT LDL IF TG IS HIGH Lab Routine Dyslipidemia, goal LDL below 100 07/23/2023 8:38 AM EDT Health Maintenance Due Date Last Done Comments COVID-19 Vaccine (#1) 1957 Cologuard 2002 Fecal Occult Blood Test 2002 Sigmoidoscopy 2002 Zoster Vaccines (1 of 2) 2007 Pneumococcal Vaccine: 65+ Years (1 - PCV) 2022 Influenza Vaccine (FLU shot) (#1) 2023 Depression Screening 02/09/2024 02/08/2023 Diabetes Screening 06/01/2025 06/01/2022, 04/10/2022, 04/10/2022 Lipid Panel 04/10/2027 04/10/2022 Colonoscopy 03/25/2031 03/25/2021, 03/25/2021 Colorectal Cancer Screening 03/25/2031 DTaP,Tdap,and Td Vaccines (3 - Td or Tdap) 02/08/2033 02/08/2023, 11/05/2007 GARDASIL-HPV IMMUNIZATION SERIES Aged Out No longer eligible b ased on patient's age to complete this topic Hepatitis B Aged Out No longer eligi ble based on patient's age to complete this topic MENINGOCOCCAL (MENACTRA/MENVEO) Aged Out No longer eligible b ased on patient's age to complete this topic documented as of this encounter Medical Devices Implanted Type Area Reed Repairer Device Identifier Shelf Expiration Date Model / Serial / Lot Mesh 3dmax Mid Lg Lt 4x6in - [id number] Implanted:Qty: 1 on 06/01/2022 by Erickson Brown MD at OR [facility] Mesh Left: Groin CR BARD : DAVOL 12/02/2025 [id number] / / [id number] documented as of this encounter Visit Diagnoses Diagnosis HTN, goal below 130/80 Unspecified essential hypertension Dyslipidemia, goal LDL below 100 Other and unspecified hyperlipidemia Prediabetes Other abnormal glucose documented in this encounter Advance Directives Latest Code Status on File Code Status Date Activated Date Inactivated Comments Full Code 06/01/2022 8:18 AM 06/01/2022 7:45 PM This order reflects the patients wishes and were consensually agreed upon. Care Teams Cnc Milling Machine Operator Relationship Specialty Start Date End Date Esequiel Choi DO [address] [place] [address] PCP - General Family Medicine 01/19/22 documented as of this encounter
--- OUTSIDE RECORDS SUMMARY | 2023-11-16 00:23 | External Medical Summary ---
Author Name Unknown Address Unknown Organization K01:[facility] [place] [address] [place] [address] Laboratory Report Ordering Provider Test Date Status LUIS ALFREDO BLANCA 07/23/2023 08:38:51 Final Normal: <30 mg/g creatinine< br/>High: 30-300 mg/g creatinine
Very High: >300 mg/g creatinine
Nephrotic: >2200 mg/g creatinine Observation Date Value Abnormality Reference (Units ) Status Albumin, Urine 07/23/2023 08:38:51 1.47 (mg/dL) Final Creatinine, Urine 07/23/2023 08:38:51 232 (mg/dL) Final Albumin/Creatinine [Mass Ratio] in Urine 07/23/2023 08:38:51 6 <30 (mg/g Creat) Final Performing Location [facility] [place] - [address] [place] [address]
--- OUTSIDE RECORDS SUMMARY | 2023-11-16 00:23 | External Medical Summary ---
Author Name Unknown Address Unknown Organization [id number]:[facility] [place] [address] [facility] [address] Laboratory Report Ordering Provider Test Date Status LUIS ALFREDO BLANCA 07/23/2023 08:38:51 Final Observation Date Value Abnormality Reference (Units ) Status Triglyceride 07/23/2023 08:38:51 195 Above high normal <=174 (mg/dL) Final Triglyceride Reference Range s (mg/dL):
<150 Acceptable
150-174 Borderline high
175-499 High
>=500 Very high Cholesterol 07/23/2023 08:38:51 226 Above high normal <200 (mg/dL) Final Total Cholesterol Reference Ranges (mg/dL):
<200 Desirable
200-239 Borderline high
>=240 High HDL 07/23/2023 08:38:51 46 >39 (mg/dL ) Final HDL Cholesterol Reference Ra nges (mg/dL):
>=60 High (Desirable)
<50 Low (Undesirable) For Females
<40 Low (Undesirable) For Males NON-HDL CHOLESTEROL 07/23/2023 08:38:51 180 Above high normal <=159 (mg/dL) Final Non-HDL Cholesterol Referenc e Range (mg/dL):
<100 Target level for high risk ASCVD patient
<130 Optimal for general population
130-159 Near optimal for general population
160-189 Borderline High
190-219 High
>=220 Very High LDL, (calculated) 07/23/2023 08:38:51 141 Above high n ormal <=129 (mg/dL) Final LDL Cholesterol Reference Ra nges (mg/dL):
<70 Target level for high risk ASCVD patient
<100 Optimal for general population
100-129 Near optimal for general population
130-159 Borderline high
160-189 High
>=190 Very high Performing Location [facility] [place] - [address] [facility] [address]
--- OUTSIDE RECORDS SUMMARY | 2023-11-16 00:23 | External Medical Summary | Summary of Care ---
Author Name Unknown Organization [facility] Address [address] [place] [address] Phone [phone] Care Team Providers Care Surgery Specialist Name Role Phone Esequiel Choi Primary Care Provider Reason for Visit * Reason Onset Date Comments Medication Refill 08/10/2023 Encounter Details Date Type Department Care Team Description 08/10/2023 Refill Urology, [facility] [address] [place] [address] Denis Davila MD 27 [facility] [address] [place] [address] Allergies Active Allergy Reactions Severity Noted Date Comments Fluticasone Tachycardia 01/19/2022 Lisinopril Medium 10/19/2015 Other reaction(s): head ache, Headache, Other (see comments) Severe Headache Sulfamethoxazole-Trimethopri m 05/18/2021 Other reaction(s): rash documented as of this encounter (statuses as of 08/10/2023) Medications Medication Sig Dispensed Refills Start Date [...] the morning. 90 Tablet 3 06/20/2023 Active Tamsulosin HCl 0.4 MG Oral Capsule (Flomax) TAKE 1 CAPSULE BY MOUTH EVERY MORNING 90 Capsule 3 08/02/2023 Active documented as of this encounter (statuses as of 08/10/2023) Active Problems Problem Noted Date ROSENDO (obstructive sleep apnea) 08/27/2021 Overview: Mild and positional. Untreated. 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 Every morning..Refused By: DORIAN HARDINeason for Refusal: Refill Not Appropriate documented in this encounter Plan of Treatment Upcoming Encounters Date Type Specialty Care Team Description 12/28/2023 Office Visit Cardiology Erickson Bean PA-C 132 [facility] [place] [address] 02/12/2024 Office Visit Family Medicine Esequiel Choi DO [address] [place] [address] 02/20/2024 Office Visit Urology Denis Davila MD [address] [place] [address] [place] [address] Health Maintenance Due Date Last Done Comments [...] this encounter Medical Devices Implanted Type Area Waxing Machine Operator Helper Device Identifier Shelf Expiration Date Model / Serial / Lot Mesh 3dmax Mid Lg Lt 4x6in - [id number] Implanted:Qty: 1 on 06/01/2022 by Erickson Brown MD at OR [facility] Mesh Left: Groin CR BARD : DAVOL 12/02/2025 [id number] / / [id number] documented as of this encounter Advance Directives Latest Code Status on File Code Status Date Activated Date Inactivated Comments Full Code 06/01/2022 8:18 AM 06/01/2022 7:45 PM This order reflects the patients wishes and were consensually agreed upon. Care Teams Surgery Specialist Relationship Specialty Start Date End Date Esequiel Choi DO [address] [place] [address] PCP - General Family Medicine 01/19/22 documented as of this encounter
--- OUTSIDE RECORDS SUMMARY | 2023-11-16 00:23 | External Medical Summary | Summary of Care ---
Author Name Unknown Organization [facility] Address [address] [place] [address] Phone [phone] Care Team Providers Care Reduction Plant Supervisor Name Role Phone Esequiel Choi Primary Care Provider Reason for Visit * Reason Comments eRx-Medication Refill Encounter Details Date Type Department Care Team Description 08/02/2023 Refill Urology, [facility] [address] [place] [address] Denis Bermeo MD 27 [facility] [address] [place] [address] Allergies Active Allergy Reactions Severity Noted Date Comments Fluticasone Tachycardia 01/19/2022 Lisinopril Medium 10/19/2015 Other reaction(s): head ache, Headache, Other (see comments) Severe Headache Sulfamethoxazole-Trimethopri m 05/18/2021 Other reaction(s): rash documented as of this encounter (statuses as of 08/02/2023) Medications Medication Sig Dispensed Refills Start Date [...] EVERY MORNING 90 Capsule 3 08/02/2023 Active Tamsulosin HCl 0.4 MG Oral Capsule (Flomax) Take by mouth 1 Capsule in the morning. 90 Capsule 3 07/25/2022 08/02/2023 Discontinued documented as of this encounter (statuses as of 08/02/2023) Active Problems Problem Noted Date ROSENDO (obstructive sleep apnea) 08/27/2021 Overview: Mild and positional. Untreated. 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 Paroxysmal A-fib 06/09/2021 Gastroesophageal reflux disease with eso phagitis 06/09/2021 documented as of this encounter (statuses as of 08/02/2023) Immunizations Name Administration Dates Next Due TDAP [...] encounter Miscellaneous Notes * Telephone Encounter - Denis Bermeo MD - 08/02/2023 2:04 PM EDTSigned Prescriptions: Disp Refills Tamsulosin HCl 0.4 MG Oral Capsule (Flomax)90 Cap*3 Sig: TAKE 1 CAPSULE BY MOUTH EVERY MORNING Authorizing Provider: DENIS BERMEO * Telephone Encounter - Nupur Funez LPN - 08/02/2023 8:14 AM EDTPending Prescriptions: Disp Refills Tamsulosin HCl 0.4 MG Oral Capsule [Pharma*90 Cap*3 Sig: TAKE 1 CAPSULE BY MOUTH EVERY MORNING * Telephone Encounter - Nupur Funez LPN - 08/02/2023 8:14 AM EDT Refill of tamsulosin requested Last appt: 02/14/2023 (in office), Visit date not found (telemedicine) Next appt: 02/20/2024 Review of patient's allergies indicates: Allergen Reactions Lisinopril Other reaction(s): head ache, Headache, Other (see comments) Severe Headache Flovent Hfa [Fluticasone] Tachycardia Sulfamethoxazole-Trimethoprim Other reaction(s): rash Thank you Madeline documented in this encounter Plan of Treatment Upcoming Encounters Date Type Specialty Care Team Description 12/28/2023 Office Visit Cardiology Erickson Bean, PANiyahC [address] [place] [address] 02/12/2024 Office Visit Family Medicine Esequiel Choi DO [address] [place] [address] 02/20/2024 Office Visit Urology Denis Bermeo MD 27 [facility] [address] [place] [address] Health Maintenance Due [...] this encounter Medical Devices Implanted Type Area Edge Drummer Device Identifier Shelf Expiration Date Model / Serial / Lot Mesh 3dmax Mid Lg Lt 4x6in - [id number] Implanted:Qty: 1 on 06/01/2022 by Erickson Brown MD at OR [facility] Mesh Left: Groin CR BARD : DAVOL 12/02/2025 [id number] / / [id number] documented as of this encounter Advance Directives Latest Code Status on File Code Status Date Activated Date Inactivated Comments Full Code 06/01/2022 8:18 AM 06/01/2022 7:45 PM This order reflects the patients wishes and were consensually agreed upon. Care Teams Reduction Plant Supervisor Relationship Specialty Start Date End Date Esequiel Choi DO [address] [place] [address] PCP - General Family Medicine 01/19/22 documented as of this encounter
--- OUTSIDE RECORDS SUMMARY | 2023-11-16 00:23 | External Medical Summary ---
Author Name Unknown Address Unknown Organization K0G:[facility] [place] - [address] [place] [address] Laboratory Report Ordering Provider Test Date Status LUIS ALFREDO BLANCA 07/23/2023 08:38:51 Final Observation Date Value Abnormality Reference (Units ) Status BUN 07/23/2023 08:38:51 18 6-20 (mg/dL) Final Creatinine 07/23/2023 08:38:51 1.1 0.6-1.2 (mg/dL) Final Glomerular filtration rate/1.73 sq M.predicted [Volume Rate/Area] in Serum, Plasma or Blood by Creatinine-based formula (CKD-EPI) 07/23/2023 08:38:51 77 >=60 (mL/min) Final eGFR is calculated based on the CKD-EPI 2020 equation SODIUM 07/23/2023 08:38:51 140 135-146 (m mol/L) Final Potassium 07/23/2023 08:38:51 4.4 3.5-5.1 (m mol/L) Final Cl 07/23/2023 08:38:51 102 98-107 (mm ol/L) Final CO2 07/23/2023 08:38:51 27 22-32 (mmo l/L) Final Anion gap 07/23/2023 08:38:51 11 7-15 (mmol /L) Final Glucose 07/23/2023 08:38:51 100 70-120 (mg /dL) Final Albumin 07/23/2023 08:38:51 4.5 3.8-5.0 (g /dL) Final AST (Aspartate aminotransferase) 07/23/2023 08:38:51 17 10-50 (U/L) Final Alk Phos 07/23/2023 08:38:51 70 35-130 (U/ L) Final Bilirubin, Total 07/23/2023 08:38:51 0.6 <=1 .2 (mg/dL) Final Calcium 07/23/2023 08:38:51 9.6 8.4-10.2 ( mg/dL) Final Protein 07/23/2023 08:38:51 6.9 6.0-8.3 (g /dL) Final ALT (Alanine aminotransferase) 07/23/2023 08:38:51 33 10-50 (U/L) Final Performing Location [facility] [place] [address] - [address] [facility] [address]
--- OUTSIDE RECORDS SUMMARY | 2023-11-16 00:23 | External Medical Summary ---
Author Name Unknown Address Unknown Organization K01:[facility] [place] [place] - [address] [facility] [address] Laboratory Report Ordering Provider Test Date Status LUIS ALFREDO BLANCA 07/23/2023 08:38:51 Final Observation Date Value Abnormality Reference (Units ) Status HbA1C 07/23/2023 08:38:51 5.6 4.0-5.6 (% ) Final The use of HbA1c to monitor glycemic status is based on normal hemoglobin and HbA composition. This test should not be used in patients with abnormal hemoglobin that affects the half life of the red blood cell or the in vivo glycation rates. Glucose, estimated average 07/23/2023 08:38:51 114 <126 (mg/dL) Final Performing Location [facility] [place] [place] - [address] [facility] [address]
--- OUTSIDE RECORDS SUMMARY | 2023-11-16 00:23 | External Medical Summary | Summary of Care ---
Author Name Unknown Organization [facility] Address [address] [place] [address] Phone [phone] Care Team Providers Care Rail Operator Name Role Phone Esequiel Choi DO Primary Care Provider Reason for Visit * Reason Onset Date Comments Med Request 06/20/2023 Encounter Details Date Type Department Care Team Description 06/20/[address] [facility] [address] [place] [address] Esequiel Choi DO [address] [place] [address] Med Request Allergies Active Allergy Reactions Severity Noted Date Comments Fluticasone Tachycardia 01/19/2022 Lisinopril Medium 10/19/2015 Other reaction(s): head ache, Headache, Other (see comments) Severe Headache Sulfamethoxazole-Trimethopri m 05/18/2021 Other reaction(s): rash documented as of this encounter (statuses as of 06/20/2023) Medications Medication Sig Dispensed Refills Start Date [...] the morning. 90 Tablet 3 06/20/2023 Active Metoprolol Succinate ER 25 MG Oral Tablet Extended Release 24 Hour (toPROL XL)Indications:Pa roxysmal A-fib (HCC) Take by mouth 1 Tablet in the morning. 90 Tablet 3 06/13/2022 06/20/2023 Discontinued (Refill) documented as of this encounter (statuses as of 06/20/2023) Active Problems Problem Noted Date ROSENDO (obstructive sleep apnea) 08/27/2021 Overview: Mild and positional. Untreated. 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 Medication w. Pharmacy pended -- if agreeable. * Telephone Encounter - Sully Herrera, auto machinist - 06/20/2023 9:00 AM EDT said she was told Dr. Woods is no longer at cardio office. is trying to find a new scientific diver but was wondering if pcp could refill rx until pt get sin with another scientific diver. calling to request a refill on metoprolol. Medication was last prescribed by Dr. Woods but patient is asking if PCP can take over the medication. Please advise if this is appropriate and send to [phone] [place] [address] [place] [place] if agreeable. Thanks, Sully Herrera Dermatology Nurse [facility] ([facility]) 06/20/2023,9:01 AM documented in this encounter Plan of Treatment Upcoming Encounters Date Type Specialty Care Team Description 12/28/2023 Office Visit Cardiology Erickson Bean PA-C [address] [place] [address] 02/12/2024 Office Visit Family Medicine Esequiel Choi DO [address] [place] [address] 02/20/2024 Office Visit Urology Denis Davila MD [address] [place] [address] [place] [address] Health Maintenance Due Date Last Done Comments COVID-19 Vaccine (#1) 1957 Cologuard 2002 Fecal Occult Blood Test 2002 Sigmoidoscopy 2002 Zoster Vaccines (1 of 2) 2007 Pneumococcal Vaccine: 65+ Years (1 - PCV) 2022 Influenza Vaccine (FLU shot) (#1) 2023 Depression Screening, Annual for Pts 12 and Over 02/09/2024 02/08/2023 Diabetes Screening 06/01/2025 06/01/2022, 04/10/2022, [...] this encounter Medical Devices Implanted Type Area Patient Manager Device Identifier Shelf Expiration Date Model / Serial / Lot Mesh 3dmax Mid Lg Lt 4x6in - [id number] Implanted:Qty: 1 on 06/01/2022 by Erickson Brown MD at OR [facility] Mesh Left: Groin CR BARD : DAVOL 12/02/2025 [id number] / / [id number] documented as of this encounter Visit Diagnoses Diagnosis Paroxysmal A-fib (HCC) Atrial fibrillation documented in this encounter Advance Directives Latest Code Status on File Code Status Date Activated Date Inactivated Comments Full Code 06/01/2022 8:18 AM 06/01/2022 7:45 PM This order reflects the patients wishes and were consensually agreed upon. Care Teams Rail Operator Relationship Specialty Start Date End Date Esequiel Choi DO [address] [place] [address] PCP - General Family Medicine 01/19/22 documented as of this encounter
[2023-11-16 07:12] LABS: Basophils # (auto) 0.03 K/uL (0.00-0.20); Basophils % (auto) 0.3 %; Eosinophils # (auto) 0.06 K/uL (0.00-0.50); Eosinophils % (auto) 0.5 %; Hemoglobin 16.1 g/dl (14.0-18.0); Immature Granulocytes # (auto) 0.05 K/uL (0.01-0.20); Immature Granulocytes % (auto) 0.4 %; Lymphocytes # (auto) 0.96 K/uL (1.20-3.40); Lymphocytes % (auto) 8.6 %; Mean Corpuscular Hemoglobin 29.2 pg (25.0-34.0); Mean Corpuscular Hgb Conc 34.3 g/dL (32.0-36.0); Mean Corpuscular Volume 85.1 fL (80.0-100.0); Mean Platelet Volume 10.1 fL (9.4-12.4); Monocytes % (auto) 9.8 %; Neutrophils # (auto) 9.01 K/uL (1.40-6.50); Neutrophils % (auto) 80.4 %; Platelet Count 176 K/uL (130-400); RDW Standard Deviation 40.7 fL (36.4-46.3); Red Blood Count 5.52 M/uL (4.70-6.10); White Blood Count 11.21 K/ul (4.8-10.8)
[2023-11-16 08:34] LABS: Albumin Globulin Ratio 1.1 (0.9-2); Albumin Level 3.1 gm/dl (3.4-5.0); BUN Creatinine Ratio 16.2 (10-20); Bilirubin,Total 1.2 mg/dl (0.2-1.0); Creatinine Clr Calc Pharmacy 84.7 ml/min; Est GFR (African American) 91.6 ml/min; Globulin 2.8 gm/dl (2.5-4.0); Potassium 3.8 mmol/L (3.5-5.1); Total Protein 5.9 gm/dl (6.0-8.3)
[2023-11-16] MEDS: METOPROLOL SUCC 25MG EXT REL TAB PO SCH (08:35)
[2023-11-16] MEDS: CIPROFLOXACIN / D5W 400 MG/200 ML BAG IV SCH ×2 (08:35→21:00)
[2023-11-16] MEDS: MULTIVITAMIN TAB PO SCH (08:36)
--- NOTE | 2023-11-16 09:28 | Urology Progress Note ---
Date of Service November 16, 2023 Assessment & Plan (1) Prostate abscess: Plan 68yo/M admitted with concern for prostatic abscess and UTI Afebrile, hemodynamically stable. Labs today reviewed -WBC 11.21, hemoglobin 16.1, creatinine 0.99. Urine culture preliminary E. coli, blood cultures pending. On IV Ciprofloxacin. Voiding spontaneously, continue to monitor. Bladder scan prn. We reviewed his CT findings concerning for prostatic abscess. We discussed that due to the size of the prostate abscess, our recommendation would be for cystoscopy, possible transurethral unroofing of prostatic abscess. Risks and benefits were discussed. He is agreeable to proceeding. All questions were answered. Plan to proceed to OR today for cystoscopy, possible TURP, possible unroofing of prostate abscess with Dr. Stafford. Risks and benefits were discussed. Keep NPO. Continue supportive care and pain management. Continue antibiotics and tailor as culture data becomes available. Urology will follow. Plan of care reviewed with Dr. Stafford, on-call urologist. Attending note: Patient independently assessed, examined, interviewed, and evaluated. Agree with note as above. Patient's vitals and labs were all reviewed. Pertinent values in the HPI and plan section. Imaging was reviewed interpreted by myself. Agree with read. Vitals were reviewed. Discussed findings extensively with patient and family. Reviewed with nurse practitioner as well as consulting physicians/team. Patient's complicated medical and surgical history was reviewed and summarized above. Patient's surgical, medical, social, and family history were all reviewed with pertinent values as above. Discussed patient's current diagnosis as well as concerns and issues. Reviewed different options moving forward. Discussed potential risks and benefits as well as possible options and concerns. Reviewed potential surgical options and interventions. Discussed potential issues and concerns related to intervention. Risk and benefits were discussed extensively with patient and any available family. Discussed potential risks related to anesthesia. Discussed risks of bleeding infection and injury. Risks and benefits discussed at length for procedure. These include bleeding, infection, injury to surrounding tissues or organs, and risks associated with anesthesia. Patient states understanding and agrees to proceed. Will sign consent and schedule. Plan for Cystoscopy with possible resection of prostate, unroofing of prostatic abscess. Admission and Anticipated Discharge Date Admission Date: November 15, 2023 Subjective Patient examined at bedside this AM. Awake, resting in bed on arrival. No acute distress. Denies fever, chills, nausea, vomiting. Reports R groin pain, mostly with movement. Voiding spontaneously, notes some urinary frequency and mild hematuria. No dysuria. Feels he is emptying his bladder well. Has been NPO. Review of Systems Constitutional: as per Subjective / HPI Gastrointestinal: as per Subjective / HPI Genitourinary: + as per Subjective / HPI Physical Exam Constitutional: no acute distress Respiratory: no respiratory distress and no labored breathing Musculoskeletal: Head/Neck/Chest: normocephalic Skin: No visible rashes or lesions to exposed skin areas Neurologic: moves all extremities and awake Psychiatric: A+Ox3, euthymic affect Results & Data Vital Signs (Past 12 Hours) Vital Signs Temp Pulse Pulse Resp BP BP Pulse Ox 11/16/23 08:15 76 20 132/85 92 11/16/23 07:02 37.1 C 83 16 150/89 H 94 11/16/23 01:18 37.2 C 74 18 136/69 95 11/15/23 22:55 37.8 C H 77 18 156/96 H 96 11/15/23 22:00 133/91 11/15/23 22:00 79 16 94 O2 Del Method 11/16/23 08:15 Room Air 11/16/23 07:02 Room Air 11/16/23 01:18 Room Air 11/15/23 22:55 Room Air 11/15/23 22:00 11/15/23 22:00 PG Care Time/CCT Total # of Minutes Spent Total Time Spent with Patient: Total time spent is greater than 50% in coordination of care (as documented) at patient's floor/unit and/or counseling patient: Coding Level of Care Code 81326 SUB INP/OBS CARE 2/35MIN Diagnoses Prostate abscess N41.2
--- NOTE | 2023-11-16 10:35 | Anesthesiology Consultation ---
Date of Service November 16, 2023 Assessment & Plan Chart Review Chart Review: Acceptable Risk for Surgery and Patient NOT seen in Pre Admission Testing Consults Requested none ASA ASA2 Proposed Anesthesia Anesthesia Type: General History Surgery Operation Date: 11/16/23 07:00 Proposed Procedures p Cystoscopy, Possible Unroofing of Prostate Abscess, Possible Transurethral Resection Prostate - Sachin Stafford, DO Height/Weight Height: 5 ft 10 in Weight: 94.4 kg Allergies Allergy/AdvReac Type Severity Reaction Status Date / Time lisinopril AdvReac Mild Headache Verified 11/15/23 18:52 Medications Home Medications Medication Instructions Recorded Confirmed Last Taken multivitamin 1 tab PO DAILY 08/07/20 11/15/23 Unknown ibuprofen 200 mg tablet 400 - 600 mg PO Q8 PRN Fever Or 11/15/23 11/15/23 Unknown Pain metoprolol succinate 25 mg 25 mg PO QAM 11/15/23 11/15/23 Unknown tablet,extended release 24 hr Active Medications Generic Name Dose Route Start Last Admin Trade Name Freq PRN Reason Stop Dose Admin Sodium Chloride 1,000 mls @ 50 mls/hr 11/15/23 19:49 11/15/23 23:11 Nss IV 11/16/23 15:48 50 mls/hr .Q20H ONE Administration Ciprofloxacin 400 mg in 200 mls @ 100 mls/hr 11/16/23 09:00 11/16/23 08:35 Cipro / D5w IV 11/26/23 08:59 100 mls/hr Q12H TERESO Administration Protocol Metoprolol Succinate 25 mg 11/16/23 09:00 11/16/23 08:35 Metoprolol Succ 25mg Ext Rel Tab PO 12/16/23 08:59 25 mg QAM TERESO Administration Multivitamins 1 tab 11/16/23 09:00 11/16/23 08:36 Multivitamin Tab PO 12/16/23 08:59 1 tab DAILY TERESO Administration Past Medical History ASCVD Aorta Mild splenomegaly Exercise / Class Metabolic Activity II 4-5 Yardwork/Stairs/Walk up hill Past Surgical History Surgical History History of esophagogastroduodenoscopy (EGD) S/P shoulder surgery Past Anesthesia History No Hx of Anesthesia Complications and No Family Hx of Anesthesia Complications History of PONV No Hx of PONV and No Hx of Motion Sickness Social History Smoking Status: Never smoker Do You Dip or Chew Tobacco: No Hx Alcohol Use: No Hx Substance Use: No substance use type: does not use Physical Exam Vital Signs Last Vital Signs Temp 37.1 C 11/16/23 07:02 Pulse 76 11/16/23 08:15 Resp 20 11/16/23 08:15 BP 132/85 11/16/23 08:15 Pulse Ox 92 11/16/23 08:15 O2 Del Method Room Air 11/16/23 08:15 Testing Laboratory Results 11/16/23 06:52 11/16/23 06:52 Urine Color Dark Yellow 11/15/23 14:35 Urine Appearance Cloudy (Clear) A 11/15/23 14:35 Urine pH 5.5 (4.5-7.5) 11/15/23 14:35 Ur Specific [place] 1.025 (1.000-1.030) 11/15/23 14:35 Urine Protein 1+ (Negative) H 11/15/23 14:35 Urine Glucose (UA) Negative (Negative) 11/15/23 14:35 Urine Ketones 1+ (Negative) H 11/15/23 14:35 Urine Nitrite Positive (Negative) A 11/15/23 14:35 Ur Leukocyte Esterase 2+ (Negative) H 11/15/23 14:35 Urine WBC (Auto) >30 /hpf (0-5) H 11/15/23 14:35 Urine RBC (Auto) 5-10 /hpf (0-4) H 11/15/23 14:35 U Hyaline Cast (Auto) 1-5 /lpf (0-5) 11/15/23 14:35 U Epithel Cells (Auto) 0-5 /lpf (0-5) 11/15/23 14:35 Urine Bacteria (Auto) 4+ (Negative) H 11/15/23 14:35 11/15/23 14:35 Urine Culture - Preliminary Urine,Clean Catch Escherichia coli Electrocardiogram Date: 11/15/23 Findings: + NSR @ (@ 44)
--- NOTE | 2023-11-16 11:58 | Electrocardiogram Report ---
Test Reason : Blood Pressure : / mmHG Vent. Rate : 079 BPM Atrial Rate : 079 BPM P-R Int : 162 ms QRS Dur : 094 ms QT Int : 388 ms P-R-T Axes : 045 005 021 degrees QTc Int : 444 ms Normal sinus rhythm Normal ECG When compared with ECG of 12-SEP-2016 08:39, No significant change was found Confirmed by Derick Mukherjee ([id number]) on 11/16/2023 11:58:23 AM Referred By: REFERRED SELF Confirmed By:Derick Mukherjee
[2023-11-16] MEDS ORDERED: MIDAZOLAM HCL 1 MG/ML 2ML VIAL ONE (13:15)
[2023-11-16] MEDS ORDERED: fentaNYL citrate PF 100 MCG/2 ML VIAL ONE (13:15)
[2023-11-16] MEDS ORDERED: LIDOCAINE 2% 2 ML VIAL/AMP(20MG/ML) INFIL ONE (13:16)
[2023-11-16] MEDS ORDERED: ONDANSETRON INJ 2 MG/ML 2 ML VIAL ONE (13:16)
[2023-11-16] MEDS ORDERED: PROPOFOL IV EMULSION 10 MG/ML 20 ML VIAL IV ONE (13:16)
[2023-11-16] MEDS ORDERED: ATROPINE SULFATE 0.1 MG/ML 10ML SYR IV PRN ×2 (13:38→15:35)
[2023-11-16] MEDS ORDERED: HYDROmorphone INJ 1 MG/ML SYRINGE IV PRN (13:38)
[2023-11-16] MEDS ORDERED: PROMETHAZINE HCL 6.25 MG in SODIUM CHLORIDE 0.9% 50 ML IV PRN (13:38)
[2023-11-16] MEDS ORDERED: ePHEDrine sulfate 50 MG/ML AMP IV PRN ×2 (13:38→15:35)
[2023-11-16] MEDS ORDERED: ONDANSETRON INJ 2 MG/ML 2 ML VIAL IV PRN (13:38)
--- NOTE | 2023-11-16 15:19 | Operative Report ---
PG Post Operative Report Pre & Post Diagnosis Prostate Abscess, Prostate Enlargement, Bladder outlet obstruction Same Operation Date: 11/16/23 07:00 <No data on this case meets the specified criteria> I identified the patient and participated in the time-out.: Yes Procedure Cystoscopy with transurethral resection of the prostate and unroofing of prostatic abscess x 3 Operation Date: 11/16/23 07:00 <No data on this case meets the specified criteria> Surgeon Sachin Stafford, II, DO Veterinary Assistant Technician None Estimated Blood Loss 5 Findings Consistent with Post-Op Diagnosis Large Prostate with obstruction. Severe inflammatory changes with large prostatic varicosities and significant erythematous changes. Fluctuant enlarged area of prostate in the distal portion at approximately 4:00 to 6 o'clock position. Large median lobe projecting into the bladder. 3 individual prostatic abscess cavities in the left lateral lobe Specimens Prostate resection Drains 22Fr three-way catheter Anesthesia Type General Complications none Disposition Disposition: Recovery Room Indications Patient with obstruction due to prostate obstruction with likely prostatic abscess and significant enlargement. Risks and benefits discussed at length. Description of Procedure Patient was consented and brought back to the operating room. Patient was placed under anesthesia in the supine position and moved to the dorsal lithotomy position. Patient was prepped and draped in the regular sterile fashion. A time out was completed. A 30degree Cystoscope was placed into the bladder and the entire bladder was examined. The UO's were identified as well as the bladder neck, trigone, dome, and the other important landmarks. The prostatic urethra and large lobes/adenoma was assessed and the veru and bladder neck identified and area/size was assessed. The prostate was severely erythematous with multiple areas of inflammation. Severe swelling with likely fluctuance at the distal portion of the prostatic urethra near the Linda consistent with area of possible prostatic abscess. Large varicosities throughout the prostate with significant projection of the median lobe into the bladder. Erythematous changes and edematous changes throughout the bladder with likely active inflammation from infection issues. The resection scope was placed and the fine bipolar loop was selected. Starting at the 5 and 7 o'clock positions, a channel was created from bladder neck to the veru. A large amount of tissue was resected along the median lobe in order to form a workable channel. A large amount of prostatic varicosities had to be fulgurated throughout the process in order to control bleeding. Resection was then taken along the edge of the Linda on the lateral lobe. Res ection was taken down and a large abscess cavity was able to be unroofed. Starting at the 1 o'clock position resection was then taken down along the lateral lobe in order to resect the very large left lateral lobe. A large abscess cavity was further drained connecting to the large initial cavity on the approximately 5 o'clock position. 2 additional abscess cavities were discovered just lateral to this position. These were then unroofed and drained further. The base of the abscess cavities were fulgurated in order to control bleeding along the edges as well as the significant inflammatory tissue and inflammation. The left lateral lobe was resected down to capsule fibers in order to fully resect the infected and abscessed tissue. The Specimen was removed and sent for analysis. The resection bed and any bleeding areas were fulgurated/cauterized and the entire area inspected. The channel was then further cleaned and resected in order to form a better channel. The right lateral lobe was largely avoided with only minor fulguration's on the edges in order to control any bleeding from the large prostatic varicosities. The median lobe and left lateral lobe were largely resected and the left lateral lobe was resected down to capsule fibers. The abscess cavity was found to be tracking posteriorly and the edges were able to be controlled it with all bleeding controlled. All of the abscess debris and fluid had been adequately drained and flushed free. The bladder was inspected and there was a large amount of erythematous changes throughout the bladder still. No lesions or other areas of concern. No major bleeding at the bladder neck and a few small prostatic varicosities were fulgurated along the bladder neck to control any bleeding. The UOs were easily identified bilaterally without major issue. All bleeding was controlled. The bladder was inspected a final time. The bladder was emptied and irrigated. All specimen and debris was removed. The scope was removed with the bladder partially full. A catheter was placed and balloon elevated. This was easily irrigated. The patient was cleaned, aroused from anesthesia, and transferred to the pacu in stable condition having tolerated the procedure well with no complications. I was present and participated in all aspects of the procedure. The patient will be monitored in the PACU until transferred. Will plan to maintain CBI and flush the bladder and continue to monitor. Will likely be able remove catheter in the next 3 to 5 days with plans for follow-up as an outpatient Will likely need approximately 10 to 14 days of antibiotics for full treatment due to severe prostatitis with prostatic abscess I attest to the content of the Intraoperative Record and any orders documented therein. Any exceptions are noted below.
[2023-11-16] MEDS ORDERED: ACETAMINOPHEN 1000 MG/100 ML IV IV ONE (15:25)
[2023-11-16] MEDS: fentaNYL citrate PF 100 MCG/2 ML VIAL IV PRN ×4 (15:28→15:43)
[2023-11-16] MEDS ORDERED: ACETAMINOPHEN 1,000 MG/100 ML VIAL IV STA (15:30)
[2023-11-16] MEDS ORDERED: MEPERIDINE HCL 25 MG/ML CARP/VIAL IV PRN (15:35)
[2023-11-16] MEDS ORDERED: MEPERIDINE HCL 25 MG/ML CARP/VIAL ONE (15:37)
--- NOTE | 2023-11-16 16:01 | Anesthesiology Progress Note ---
Date of Service November 16, 2023 Anesthesia Post Procedure Vital Signs Vital Signs: Temp Pulse Pulse Pulse Resp BP BP 11/16/23 15:55 92 H 19 138/88 11/16/23 15:45 90 20 146/91 H 11/16/23 15:35 98.1 F 108 H 20 157/102 H 11/16/23 15:25 98.4 F 106 H 20 151/94 H 11/16/23 13:19 98.2 F 76 20 146/98 H 11/16/23 08:15 76 20 132/85 11/16/23 07:02 98.8 F 83 16 150/89 H 11/16/23 01:18 99.0 F 74 18 136/69 11/15/23 22:55 100.0 F H 77 18 156/96 H 11/15/23 22:00 133/91 11/15/23 22:00 79 16 11/15/23 21:00 79 21 11/15/23 21:00 146/108 H 11/15/23 21:00 11/15/23 20:37 76 22 11/15/23 18:43 85 16 160/92 H 11/15/23 17:27 92 H 18 144/92 H Pulse Ox O2 Del Method O2 Flow Rate 11/16/23 15:55 94 Nasal Cannula 2 11/16/23 15:45 94 Nasal Cannula 2 11/16/23 15:35 96 Oxymask 5 11/16/23 15:25 95 Oxymask 5 11/16/23 13:19 96 Room Air 11/16/23 08:15 92 Room Air 11/16/23 07:02 94 Room Air 11/16/23 01:18 95 Room Air 11/15/23 22:55 96 Room Air 11/15/23 22:00 11/15/23 22:00 94 11/15/23 21:00 93 11/15/23 21:00 11/15/23 21:00 93 Room Air 11/15/23 20:37 93 11/15/23 18:43 94 Room Air 11/15/23 17:27 96 Room Air Pain Intensity Scrotal: Pain Intensity: 8 Transfer of Care Handoff Completed per policy Notes Mental Status: alert / awake / arousable and participated in evaluation Patient Amnestic to Procedure: Yes Nausea / Vomiting: adequately controlled Pain: adequately controlled Airway Patency, RR, SpO2: stable & adequate BP & HR: stable & adequate Hydration State: stable & adequate Anesthetic Complications: no major complications apparent and Pt Satisfied with anesthetic care
--- NOTE | 2023-11-16 16:24 | Hospitalist Progress Note ---
Date of Service November 16, 2023 Assessment & Plan (1) Prostate abscess: Plan: Complicated UTI History of BPH - urine culture: E coli, sens pending blood cultures: pending - s/p prostate abscess drainage - on IV Cipro - monitor closely Urologist on board PAF, patient NSR - continue Metoprolol Hypertension BP improving monitor GERD/eosinophilic esophagitis Asymptomatic transaminitis DVT prophylaxis. SCDs Full code Disposition pending anticipate d/c home when medically stable Admission and Anticipated Discharge Date Admission Date: November 15, 2023 Subjective ff up for prostate abscess, etc seen resting in bed, comfortable states he feels ok overall has more testicular pain with movement had an episode of pink urine earlier no abdominal pain, fever/chills no chest pain, dyspnea, palpitations, dizziness no other symptoms Review of Systems Review of Systems: all noted and negative except for above Physical Exam Physical Exam: General- oriented x 3, not in distress, speaks in sentences with no effort or accessory muscle use Eyes- anicteric Neck- no JVD Lungs- clear breath sounds bilaterally, no rales/wheezes Heart- normal rate, regular rhythm; no murmurs Abdomen- normal bowel sounds, nondistended, soft, nontender Extremities- no pretibial edema, no calf tenderness Neuro- alert, oriented x 3; no gross focal neurologic deficits Skin- warm & dry Results & Data Results & Data Vital Signs (Past 12 Hours) Vital Signs Temp Pulse Pulse Resp BP Pulse Ox O2 Del Method 11/16/23 16:05 36.8 C 90 19 135/88 96 Nasal Cannula 11/16/23 15:55 92 H 19 138/88 94 Nasal Cannula 11/16/23 15:45 90 20 146/91 H 94 Nasal Cannula 11/16/23 15:35 36.7 C 108 H 20 157/102 H 96 Oxymask 11/16/23 15:25 36.9 C 106 H 20 151/94 H 95 Oxymask 11/16/23 13:19 36.8 C 76 20 146/98 H 96 Room Air 11/16/23 08:15 76 20 132/85 92 Room Air 11/16/23 07:02 37.1 C 83 16 150/89 H 94 Room Air O2 Flow Rate 11/16/23 16:05 2 11/16/23 15:55 2 11/16/23 15:45 2 11/16/23 15:35 5 11/16/23 15:25 5 11/16/23 13:19 11/16/23 08:15 11/16/23 07:02 all noted and reviewed including below
[2023-11-17] MEDS: LORazepam 0.5 MG TAB PO PRN (02:21)
[2023-11-17] MEDS: METOPROLOL SUCC 25MG EXT REL TAB PO SCH (07:49)
[2023-11-17] MEDS: MULTIVITAMIN TAB PO SCH (07:49)
[2023-11-17] MEDS: CIPROFLOXACIN / D5W 400 MG/200 ML BAG IV SCH ×2 (08:32→21:28)
[2023-11-17] MEDS: POLYETHYLENE (MIRALAX) 17 GM PACK PO SCH (11:51)
[2023-11-17] MEDS: SODIUM CHLORIDE 0.9% 1,000 ML IV SCH ×2 (11:51→23:38)
[2023-11-17] MEDS: ACETAMINOPHEN 1,000 MG/100 ML VIAL IV SCH ×2 (15:58→23:37)
--- NOTE | 2023-11-17 18:49 | Hospitalist Progress Note ---
Date of Service November 17, 2023 Assessment & Plan (1) Prostate abscess: Plan: Complicated UTI History of BPH - urine culture: E coli, pansensitive blood cultures: Negative x 24 hours - s/p prostate abscess drainage -Stable overall Continue IV Cipro Added IV Ofirmev every 8 hours - monitor closely Urologist on board PAF, patient NSR - continue Metoprolol Hypertension BP improving monitor GERD/eosinophilic esophagitis Asymptomatic transaminitis DVT prophylaxis. SCDs Full code Disposition pending anticipate d/c home when medically stable Admission and Anticipated Discharge Date Admission Date: November 15, 2023 Subjective Follow-up for prostate abscess, etc. Seen resting in bed, not in distress Having some lower abdominal pain, worse with movement no chest pain, dyspnea, palpitations, dizziness No fevers or chills, nausea No other new symptoms Review of Systems Review of Systems: all noted and negative except for above Physical Exam Physical Exam: General- oriented x 3, not in distress, speaks in sentences with no effort or accessory muscle use Eyes- anicteric Neck- no JVD Lungs- clear breath sounds bilaterally, no rales/wheezes Heart- normal rate, regular rhythm; no murmurs Abdomen- normal bowel sounds, nondistended, soft, nontender Palmer catheter in place-draining yellow urine Extremities- no pretibial edema, no calf tenderness Neuro- alert, oriented x 3; no gross focal neurologic deficits Skin- warm & dry Results & Data Results & Data Vital Signs (Past 12 Hours) Vital Signs Temp Pulse Resp BP BP Pulse Ox O2 Del Method 11/17/23 15:06 36.7 C 70 18 122/77 94 Room Air 11/17/23 11:50 37.2 C 11/17/23 10:34 37.9 C H 84 20 121/74 90 Room Air 11/17/23 07:15 Nasal Cannula 11/17/23 07:00 36.9 C 87 16 113/72 94 Room Air O2 Flow Rate 11/17/23 15:06 11/17/23 11:50 11/17/23 10:34 11/17/23 07:15 2 11/17/23 07:00 all noted and reviewed including below
[2023-11-18] MEDS: ACETAMINOPHEN 1,000 MG/100 ML VIAL IV SCH ×3 (07:22→23:32)
[2023-11-18] MEDS: MULTIVITAMIN TAB PO SCH (08:11)
[2023-11-18] MEDS: METOPROLOL SUCC 25MG EXT REL TAB PO SCH (08:11)
[2023-11-18] MEDS: POLYETHYLENE (MIRALAX) 17 GM PACK PO SCH (08:14)
[2023-11-18] MEDS: CIPROFLOXACIN / D5W 400 MG/200 ML BAG IV SCH ×2 (08:17→21:21)
[2023-11-18 10:45] LABS: Basophils # (auto) 0.04 K/uL (0.00-0.20); Basophils % (auto) 0.6 %; Eosinophils % (auto) 1.6 %; Hematocrit (blood only) 44.3 % (42.0-52.0); Hemoglobin 15.9 g/dl (14.0-18.0); Immature Granulocytes # (auto) 0.11 K/uL (0.01-0.20); Immature Granulocytes % (auto) 1.7 %; Lymphocytes # (auto) 0.63 K/uL (1.20-3.40); Lymphocytes % (auto) 9.8 %; Mean Corpuscular Hemoglobin 29.8 pg (25.0-34.0); Mean Corpuscular Hgb Conc 35.9 g/dL (32.0-36.0); Mean Platelet Volume 10.6 fL (9.4-12.4); Monocytes # (auto) 0.66 K/uL (0.11-0.59); Monocytes % (auto) 10.2 %; Neutrophils # (auto) 4.91 K/uL (1.40-6.50); Neutrophils % (auto) 76.1 %; Platelet Count 153 K/uL (130-400); RDW Coefficient of Variation 12.9 % (11.5-14.5); RDW Standard Deviation 39.1 fL (36.4-46.3); Red Blood Count 5.34 M/uL (4.70-6.10); White Blood Count 6.45 K/ul (4.8-10.8)
[2023-11-18 10:55] LABS: BUN Creatinine Ratio 13.7 (10-20); Calcium 7.9 mg/dl (8.6-10.3); Creatinine Clr Calc Pharmacy 82.2 ml/min; Est GFR (African American) 88.4 ml/min; Est GFR (Non-African American) 76.2 ml/min; Potassium 3.6 mmol/L (3.5-5.1)
[2023-11-18] MEDS: SODIUM CHLORIDE 0.9% 1,000 ML IV SCH ×2 (12:04→23:33)
[2023-11-18 12:05] LABS: Albumin Level 2.9 gm/dl (3.4-5.0); Bilirubin Direct 0.2 mg/dl (0-0.2); Bilirubin,Total 0.6 mg/dl (0.2-1.0); Total Protein 5.6 gm/dl (6.0-8.3)
--- NOTE | 2023-11-18 12:27 | Urology Progress Note ---
Date of Service November 18, 2023 Assessment & Plan (1) Prostate abscess: Plan Patient postop day 2 status post resection of prostate abscess. Large abscess of the left lateral lobe and median lobe with considerable median lobe causing obstruction. Severe inflammation throughout the bladder. 3 areas of abscess cavity which was drained. Patient has catheter in place. Has been flushing well without major issues. Continue to monitor. Vitals and labs have all remained stable. Patient's white count has decreased 6.4. Creatinine is 1.02. Patient is recovering slowly. Will plan to continue to monitor. Encourage ambulation. Encourage hydration and increasing diet. Patient will likely need discharge with catheter in place. Will likely need follow-up in approximately 1 to 2 weeks for catheter removal as well as review of pathology. Will likely need at least 7 to 10 days of antibiotics for full clearing of prostatitis with prostatic abscess. Will plan to continue monitor. Patient likely be able to discharge with catheter in place and antibiotics. Can de-escalate once cultures are finalized. Admission and Anticipated Discharge Date Admission Date: November 15, 2023 Subjective Postop from urologic surgery. Patient has been tolerating well, but is having some pain and discomfort. Pelvis/groin and genitals have been mild sore. Having some abdominal distension/gas pains. Has tolerated catheter. Has not had severe pain or uncontrollable pain. Patient has been ambulating. Has not had bowel movement or major change. No new nausea or vomiting. Had tolerated anesthesia without major problems Tolerated liquid diet postoperatively. Review of Systems Review of Systems: All systems reviewed & are unremarkable except as noted in HPI & below Physical Exam Physical Exam: General: Alert in no acute distress. HEENT: Normocephalic Atraumatic. Inspection normal. Cranial Nerves 2-12 Grossly intact. Normal inspection of face. Normal inspection of neck. Psychologic: Normal affect. Respiratory: Nonlabored. No use of accessory muscles. No tachypnea or dyspnea. Cardiovascular: No tachycardia Skin: Starr and Dry. No rashes or visible lesions. Extremities/Lymphatics: No edema Abdomen: Appropriately tender. Mild distended. No rebound or guarding. : ivan in place draining clear yellow. Results & Data Vital Signs (Past 12 Hours) Vital Signs Temp Pulse Resp BP Pulse Ox O2 Del Method 11/18/23 07:15 36.5 C 75 18 151/92 H 94 Room Air PG Care Time/CCT Total # of Minutes Spent Total Time Spent with Patient: Total time spent is greater than 50% in coordination of care (as documented) at patient's floor/unit and/or counseling patient: Coding Level of Care Code 78251 SUB INP/OBS CARE 3/50MIN Diagnoses Prostate abscess N41.2
--- NOTE | 2023-11-18 18:42 | Hospitalist Progress Note ---
Date of Service November 18, 2023 Assessment & Plan (1) Prostate abscess: Plan: Complicated UTI History of BPH - urine culture: E coli, pansensitive blood cultures: Negative x 24 hours - s/p prostate abscess drainage -Stable overall Pain improving Continue IV Cipro Added IV Ofirmev every 8 hours - monitor closely Urologist on board PAF, patient NSR - continue Metoprolol Hypertension BP improving monitor GERD/eosinophilic esophagitis Asymptomatic transaminitis DVT prophylaxis. SCDs Full code Disposition pending anticipate d/c home when medically stable Admission and Anticipated Discharge Date Admission Date: November 15, 2023 Subjective Follow-up for prostatic abscess, etc. Seen resting in bed, comfortable, not in distress Pain more manageable today No fevers or chills No hematuria no chest pain, dyspnea, palpitations, dizziness No other new symptoms Review of Systems Review of Systems: all noted and negative except for above Physical Exam Physical Exam: General- oriented x 3, not in distress, speaks in sentences with no effort or accessory muscle use Eyes- anicteric Neck- no JVD Lungs- clear breath sounds bilaterally, no rales/wheezes Heart- normal rate, regular rhythm; no murmurs Abdomen- normal bowel sounds, nondistended, soft, nontender Extremities- no pretibial edema, no calf tenderness Palmer catheter in place: Clear, yellow urine Neuro- alert, oriented x 3; no gross focal neurologic deficits Skin- warm & dry Results & Data Results & Data Vital Signs (Past 12 Hours) Vital Signs Temp Pulse Resp BP BP Pulse Ox O2 Del Method 11/18/23 15:22 36.8 C 71 18 154/97 H 96 Room Air 11/18/23 07:15 36.5 C 75 18 151/92 H 94 Room Air all noted and reviewed including below
[2023-11-18] MEDS: LORazepam 0.5 MG TAB PO PRN (21:36)
[2023-11-18] MEDS ORDERED: SODIUM CHLORIDE 0.65% NA SOLN 45 ML (OCEAN) ONE (23:36)
[2023-11-19] MEDS: ACETAMINOPHEN 1,000 MG/100 ML VIAL IV SCH (07:25)
[2023-11-19] MEDS: POLYETHYLENE (MIRALAX) 17 GM PACK PO SCH (08:10)
[2023-11-19] MEDS: CIPROFLOXACIN / D5W 400 MG/200 ML BAG IV SCH (08:10)
[2023-11-19] MEDS: METOPROLOL SUCC 25MG EXT REL TAB PO SCH (08:11)
[2023-11-19] MEDS: MULTIVITAMIN TAB PO SCH (08:11)
--- NOTE | 2023-11-19 08:55 | Urology Progress Note ---
Date of Service November 19, 2023 Assessment & Plan (1) Prostate abscess: Plan: Follow-up of prostatic abscess POD #3 Cystoscopy with transurethral resection of the prostate and unroofing of prostatic abscess x 3 Subjectively doing well Patient afebrile, hemodynamically stable Urine culture with E. coli Blood cultures with no growth to date Currently on IV ciprofloxacin Palmer patent and draining clear yellow urine with CBI on slow CBI clamped during exam Maintain Palmer catheter upon discharge Continue antibiotics for complicated UTI Continue supportive care and medical management per hospital medicine service Patient reassessed- Palmer draining clear yellow with CBI clamped- okay to discontinue CBI, maintain catheter Will arrange outpatient follow-up with our service will sign off Admission and Anticipated Discharge Date Admission Date: November 15, 2023 Subjective Patient seen and examined at bedside this morning, chart reviewed No acute issues overnight Reports some discomfort with catheter when moving around Tolerating p.o. diet Palemr patent draining clear yellow urine with CBI on slow CBI clamped during exam Denies fever, chills, nausea or vomiting Review of Systems Constitutional: as per Subjective / HPI Genitourinary: + as per Subjective / HPI Physical Exam Constitutional: well developed and well nourished; no acute distress Respiratory: normal respiratory effort; no respiratory distress and no labored breathing Gastrointestinal (Abdomen): Inspection/Auscultation: abdomen normal to inspection Musculoskeletal: Head/Neck/Chest: normocephalic Neurologic: moves all extremities and awake Psychiatric: Orientation: alert and oriented x 3 Genitourinary: Palmer patent draining clear yellow urine with CBI on slow CBI clamped during exam Results & Data Vital Signs (Past 12 Hours) Vital Signs Temp Pulse Resp BP BP Pulse Ox O2 Del Method 11/19/23 07:22 36.6 C 75 17 153/99 H 94 Room Air 11/18/23 21:05 36.8 C 67 18 159/103 H 156/102 H 96 Room Air PG Care Time/CCT Total # of Minutes Spent Total Time Spent with Patient: Total time spent is greater than 50% in coordination of care (as documented) at patient's floor/unit and/or counseling patient: Coding Level of Care Code 81258 SUB INP/OBS CARE 1/25MIN Diagnoses Prostate abscess N41.2
--- NOTE | 2023-11-19 13:57 | Infectious Disease Consult ---
Date of Service November 19, 2023 Telehealth Information I performed this visit using a real-time telehealth connection between my location and the patients location ([facility]). After connecting through interactive tele-video, patient was identified by name and date of and/or wristband check.Patient (or authorized healthcare customer account representative) was informed that this was a telemedicine visit and it was being conducted confidentially over secure lines. My office door was closed and no one else was present in the room with me.Patient (or authorized healthcare customer account representative) provided consent to proceed with the visit, expressed an understanding of privacy and security of the telemedicine visit, and gave permission to have a hospital customer account representative in the room in order to assist with the visit and to conduct portions of the visit, as needed. I informed the patient (or authorized healthcare customer account representative) that I reviewed their record and presented the opportunity for them to ask any questions regarding the visit today. The patient agreed to participate. History of Present Illness History of Present Illness Reason for consult: prostatic abscess Patient with PMHx of BPH who presented with 3 days of fevers and chills. This was associated with right testicular pain as well as dysuria. He denied previous episodes. He was given IV zosyn in the ED. Scrotal ultrasound was suggestive of possible epididymitis. CT AP showed prostatitis with a possible 3.1 cm prostatic abscess. Urine cultures on presentation is positive for E coli, seo-susceptible. Multiple blood cultures have been drawn and are negative. Patient was seen by urology who performed cystoscopy and unroofed the abscess. Pathology showed many neutrophils consistent with abscess. Allergies Allergy/AdvReac Type Severity Reaction Status Date / Time lisinopril AdvReac Mild Headache Verified 11/15/23 18:52 Home Medications Medication Instructions Recorded Confirmed Type multivitamin 1 tab PO DAILY 08/07/20 11/15/23 History ibuprofen 200 mg tablet 400 - 600 mg PO Q8 PRN Fever Or 11/15/23 11/15/23 History Pain metoprolol succinate 25 mg 25 mg PO QAM 11/15/23 11/15/23 History tablet,extended release 24 hr ciprofloxacin HCl 500 mg tablet 500 mg PO BID 38 days #76 tabs 11/19/23 Rx Patient History Surgical History History of esophagogastroduodenoscopy (EGD) S/P shoulder surgery Social History Smoking Status: Never smoker Second Hand Exposure: No; Do You Dip or Chew Tobacco: No; Hx Alcohol Use: No Hx Substance Use: No Preferred Language: Burkinan Communication Ability: Effective Pearl Stringer Required: No Beliefs That Will Affect Care: None Current Living Situation: Spouse Feels Safe at Home: Yes Assistive Devices: None Review of Systems A full review of systems was performed and is negative unless mentioned in the HPI. Physical Exam General: alert, healthy and no distress HEENT: No cervical, preauricular, submandibular lymphadenopathy, oral mucosa unremarkable Cardio: RRR, well perfused, no murmurs/rubs/gallops, no JVD Pulm: CTA bilaterally, normal resp effort, no chest tenderness, no wheezes GI: Abdomen soft, non-tender, positive bowel sounds : deferred MSK: joints unremarkable without erythema, warmth or swelling Extremities: No pitting edema, well perfused Neuro: AAOx3, cranial nerves grossly intact Psych: Normal mood, normal affect, cooperative Skin: no rashes noted Results & Data Vital Signs (Past 12 Hours) Vital Signs Temp Pulse Resp BP BP Pulse Ox O2 Del Method 11/19/23 07:22 36.6 C 75 17 153/99 H 94 Room Air 11/18/23 21:05 36.8 C 67 18 159/103 H 156/102 H 96 Room Air 11/18/23 15:22 36.8 C 71 18 154/97 H 96 Room Air Intake and Output 11/18/23 11/19/23 11/19/23 22:59 06:59 14:59 Intake Total 100 / 2613.334 1218.667 / 2613.334 1300 / 1300 Output Total 2400 / 4450 2050 / 4450 1500 / 1500 Balance -2300 / -1836.666 -831.333 / -1836.666 -200 / -200 Intake: IV 100 / 2613.334 1218.667 / 2613.334 1300 / 1300 Acetaminophen 1,000 mg In 100 100 / 300 100 / 300 100 / 100 ml @ 400 mls/hr IV Q8H [facility] Rx#: [id number] Ciprofloxacin / D5w 400 mg In 200 / 400 200 / 200 200 ml @ 100 mls/hr IV Q12H [facility] Rx#:[id number] Sodium Chloride 0.9% 1,000 ml @ 918.667 / 1201.385 0789 / 1000 80 mls/hr IV .[id number] [facility] Rx#: [id number] Output: Urine Amount (Catheter) 2400 / 4450 2050 / 4450 1500 / 1500 Other: CBI Fluid - Amount Instilled 1,100 1,100 0 CBI Fluid - Amount Drained 3,500 3,150 1,500 Weight 94.4 kg Patient Weight 11/20/23 06:59 Weight 94.4 kg Vital Signs Temp Pulse Resp BP Pulse Ox O2 Del Method 11/19/23 07:22 36.6 C 75 17 153/99 H 94 Room Air Laboratory Results Microbiology 11/15/23 20:53 Blood Aerobic Blood Culture - Preliminary No growth in Aerobic bottle after 48 hours. 11/15/23 20:53 Blood Anaerobic Blood Culture - Preliminary No growth in Anaerobic bottle after 48 hours. 11/15/23 21:12 Blood Aerobic Blood Culture - Preliminary No growth in Aerobic bottle after 48 hours. 11/15/23 21:12 Blood Anaerobic Blood Culture - Preliminary No growth in Anaerobic bottle after 48 hours. 11/15/23 14:35 Urine,Clean Catch Urine Culture - Final Escherichia coli Diagnostic Findings Scrotum Ultrasound 11/15/23 14:21 SCROTAL ULTRASOUND CLINICAL HISTORY: Right groin pain COMPARISON STUDY: CT of the abdomen and pelvis August 07, 2020. TECHNIQUE: Grayscale and color and duplex Doppler sonography of the scrotum was performed. FINDINGS: The right testis measures 3.3 x 3.2 cm and the left measures 3.4 x 2.5 x 1.9 cm. Color flow within each testis is symmetric. There is no testicular ma ss. A few tiny bilateral epididymal cysts are noted. There is mild hypervascularity of the right epididymal tail. A few benign right inguinal lymph nodes were noted. No right groin abnormality was identified. IMPRESSION: 1. Normal sonographic appearance of the testes. 2. Mild hypervascularity of the right epididymal tail. This favors epididymitis. ACT 112: Negative or not required by law. Electronically signed by: Carlitos Prescott M.D. 11/15/2023 5:04 PM Abdomen/Pelvis CT 11/15/23 18:07 CT SCAN OF THE ABDOMEN AND PELVIS WITH IV CONTRAST CLINICAL HISTORY: Right flank pain. COMPARISON STUDY: Abdominal CT dated 08/07/2020. TECHNIQUE: Following the IV administration of 86 cc of Optiray 320, CT scan of the abdomen and pelvis is performed from the lung bases to the proximal femora. Images are reviewed in the axial, sagittal, and coronal planes. IV contrast was administered without complication. A dose lowering technique was utilized ad bull to the principles of ALARA. CT DOSE: 1403.75 mGy.cm FINDINGS: Lung bases: The heart is normal in size and without pericardial effusion. The lung bases are clear noting bibasilar atelectasis. There is a small hiatal hernia. Liver: The contrast-enhanced liver is normal in size, contour, and attenuation. There is no intrahepatic biliary ductal dilatation. The hepatic veins and portal veins are patent. Gallbladder: Unremarkable. Spleen: Calcification of the splenic capsule is unchanged. The spleen is mildly enlarged measuring 14.2 cm in length. Pancreas: Unremarkable. Adrenal glands: Unremarkable. Kidneys: The contrast enhanced kidneys are normal in size and without hydronephrosis. The kidneys enhance symmetrically. Urothelial thickening and enhancement is identified involving the distal right ureter. A 2.3 cm cyst is seen on the left. Abdominal vasculature: The abdominal aorta is normal in course and caliber noting mild to moderate atherosclerotic calcification. Bowel: There are scattered colonic diverticula without CT evidence of acute diverticulitis. No bowel obstruction is seen. The appendix is well-visualized and normal. Peritoneum: There is no intraperitoneal free air or abdominal ascites. There is a small fat-containing umbilical hernia. Lymphadenopathy: None. Pelvic viscera: The prostate gland is markedly enlarged and heterogeneous. A mu ltiloculated fluid collection is suggested within the left aspect of the prostate gland on image #380. This measures 3.1 x 2.3 cm and is suspicious for a prostatic abscess. There is periprostatic inflammation. The bladder wall is thickened with pericystic inflammation. There are some vesicles also appear edematous. Skeletal structures: There is mild to moderate lumbosacral spondylosis. No lytic or blastic lesions are seen. IMPRESSION: 1. There is evidence of cystitis/prostatitis with a probable 3.1 cm prostatic abscess. Correlate with clinical findings and urinalysis. 2. Urothelial thickening and enhancement is seen involving the distal right ureter. This may represent ascending urinary tract infection. 3. Mild splenomegaly. 4. Additional findings as above. ACT 112: Negative or not required by law. Electronically signed by: Joel Beltran M.D. 11/15/2023 6:34 PM Medications Administered Home Medications Medication Instructions Recorded Confirmed Last Taken multivitamin 1 tab PO DAILY 08/07/20 11/15/23 Unknown ibuprofen 200 mg tablet 400 - 600 mg PO Q8 PRN Fever Or 11/15/23 11/15/23 Unknown Pain metoprolol succinate 25 mg 25 mg PO QAM 11/15/23 11/15/23 Unknown tablet,extended release 24 hr ciprofloxacin HCl 500 mg tablet 500 mg PO BID 38 days #76 tabs 11/19/23 Unknown Active Medications Generic Name Dose Route Start Last Admin Trade Name Freq PRN Reason Stop Dose Admin Ciprofloxacin 400 mg in 200 mls @ 100 mls/hr 11/16/23 09:00 11/19/23 10:12 Cipro / D5w IV 11/26/23 08:59 Infused Q12H [facility] Infusion Protocol Acetaminophen 1,000 mg in 100 mls @ 400 mls/hr 11/17/23 16:00 11/19/23 07:45 Ofirmev IV 11/20/23 15:59 Infused Q8H [facility] Infusion Lorazepam 0.5 mg 11/17/23 02:07 11/18/23 21:36 Lorazepam 0.5 Mg Tab PO 12/17/23 02:06 0.5 mg HS PRN Administration Insomnia Metoprolol Succinate 25 mg 11/16/23 09:00 11/19/23 08:11 Metoprolol Succ 25mg Ext Rel Tab PO 12/16/23 08:59 25 mg QAM [facility] Administration Multivitamins 1 tab 11/16/23 09:00 11/19/23 08:11 Multivitamin Tab PO 12/16/23 08:59 1 tab DAILY [facility] Administration Oxycodone HCl 5 mg 11/15/23 21:38 11/17/23 10:39 Oxycodone Hcl Ir 5 Mg Tab (Immediate Release) PO 11/29/23 21:37 5 mg Q4H PRN Administration Pain Polyethylene Glycol 17 gm 11/17/23 11:30 11/19/23 08:10 Polyethylene (Miralax) 17 Gm Pack PO 12/17/23 11:29 Not Given DAILY [facility]
--- NOTE | 2023-11-19 18:24 | Discharge Summary ---
Discharge Summary Date of Service November 19, 2023 Notes For Next Care Provider Please monitor EKG for QT prolongation while on p.o. ciprofloxacin x 6 weeks Consider aspirin and statin given mild to moderate atherosclerotic calcification of abdominal vasculature. Medication Changes From Visit Ciprofloxacin 500 mg twice daily x 38 days Admission HPI Per Admitting Provider History obtained from patient, family, and records. Medical history significant for PAF, hypertension, BPH, GERD/eosinophilic esophagitis, ROSENDO as per records, liposarcoma status post surgery. Last confinement September 2011 for RLE cellulitis. 3 days history of fever chills associated with achy right groin/testicular pain. No hematuria. No previous episodes. Denies upper abdominal pain, vomiting, jaundice. IV Zosyn administered at the ER. Medical History as above Surgical History : Carpal tunnel surgery, inguinal hernia repair, shoulder liposarcoma removal, talus fracture surgery, wrist surgery Family History : Prostate cancer, CAD Personal/Social history : Non-smoker, no EtOH intake, businessman Admission Exam Per Admitting Provider GENERAL: Comfortable, pleasant, no respiratory distress SKIN: Normal color, warm HEENT: Partial alopecia, [place] palpebral conjunctivae, no ptosis, dry buccal mucosa NECK : Supple, no tenderness CHEST : CTA, no tenderness HEART : RRR, no obvious murmurs ABDOMEN: Some distention, suprapubic tenderness EXTREMITIES : No LE swelling/tenderness, no other conspicuous deformities noted NEUROLOGIC : Coherent, no facial asymmetry, no other gross focality Principal Dx & Hospital Course #1 = Principal Diagnosis (1) Prostate abscess: Complicated UTI History of BPH - urine culture: E coli, pansensitive blood cultures: Negative x 48 hours - s/p prostate abscess drainage -Stable overall Pain improving Given IV Cipro -Urology is recommending to maintain Palmer catheter until follow-up visit -Continue ciprofloxacin 500 mg twice daily x 30 days to complete 6-week course Advised to take probiotics Please monitor EKG closely for QT prolongation while on p.o. ciprofloxacin PAF, patient NSR - continue Metoprolol Hypertension BP improved GERD/eosinophilic esophagitis Asymptomatic transaminitis LFTs improved Abnormal CT abdomen finding Abdominal vasculature: The abdominal aorta is normal in course and caliber noting mild to moderate atherosclerotic calcification. -- Consider aspirin and statin as an outpatient DC home PCP follow-up in 1 week Urology follow-up in 1 week Discharge Exam General- oriented x 3, not in distress, speaks in sentences with no effort or accessory muscle use Eyes- anicteric Neck- no JVD Lungs- clear breath sounds bilaterally, no rales/wheezes Heart- normal rate, regular rhythm; no murmurs Abdomen- normal bowel sounds, nondistended, soft, nontender Palmer catheter in place: Clear yellow urine Extremities- no pretibial edema, no calf tenderness Neuro- alert, oriented x 3; no gross focal neurologic deficits Skin- warm & dry Updated Medication List Medication Instructions Recorded Confirmed Type multivitamin 1 tab PO DAILY 08/07/20 11/15/23 History ibuprofen 200 mg tablet 400 - 600 mg PO Q8 PRN Fever Or 11/15/23 11/15/23 History Pain metoprolol succinate 25 mg 25 mg PO QAM 11/15/23 11/15/23 History tablet,extended release 24 hr ciprofloxacin HCl 500 mg tablet 500 mg PO BID 38 days #76 tabs 11/19/23 Rx Hospital Stay Data Consultations 11/15/23 18:59 ED Decision to Admit Stat 11/15/23 21:37 Consult Urology Routine 11/18/23 18:39 Consult Infectious Diseases Routine Procedures Performed Operation Date: 11/16/23 07:00 Actual Procedures p Unroofing of Prostate Abscess, Transurethral Resection Prostate(Not Applicable) - Sachin Stafford DO s Cystoscopy(Not Applicable) - Sachin Stafford DO Diagnostic Imagining Performed Laboratory Results WBC 6.45 K/ul (4.8-10.8) 11/18/23 10:18 RBC 5.34 M/uL (4.70-6.10) 11/18/23 10:18 Hgb 15.9 g/dl (14.0-18.0) 11/18/23 10:18 Hct 44.3 % (42.0-52.0) 11/18/23 10:18 MCV 83.0 fL (80.0-100.0) 11/18/23 10:18 MCH 29.8 pg (25.0-34.0) 11/18/23 10:18 MCHC 35.9 g/dL (32.0-36.0) 11/18/23 10:18 RDW Std Deviation 39.1 fL (36.4-46.3) 11/18/23 10:18 RDW Coeff of Kiko 12.9 % (11.5-14.5) 11/18/23 10:18 Plt Count 153 K/uL (130-400) 11/18/23 10:18 MPV 10.6 fL (9.4-12.4) 11/18/23 10:18 Immature Gran % (Auto) 1.7 % 11/18/23 10:18 Neut % (Auto) 76.1 % 11/18/23 10:18 Lymph % (Auto) 9.8 % 11/18/23 10:18 Rock % (Auto) 10.2 % 11/18/23 10:18 Eos % (Auto) 1.6 % 11/18/23 10:18 Baso % (Auto) 0.6 % 11/18/23 10:18 Neut # (Auto) 4.91 K/uL (1.40-6.50) 11/18/23 10:18 Lymph # (Auto) 0.63 K/uL (1.20-3.40) L 11/18/23 10:18 Rock # (Auto) 0.66 K/uL (0.11-0.59) H 11/18/23 10:18 Eos # (Auto) 0.10 K/uL (0.00-0.50) 11/18/23 10:18 Baso # (Auto) 0.04 K/uL (0.00-0.20) 11/18/23 10:18 Immature Gran # (Auto) 0.11 K/uL (0.01-0.20) 11/18/23 10:18 Sodium 135 mmol/L (136-145) L 11/18/23 10:18 Potassium 3.6 mmol/L (3.5-5.1) 11/18/23 10:18 Chloride 105 mmol/L (98-107) 11/18/23 10:18 Carbon Dioxide 23 mmol/L (21-32) 11/18/23 10:18 Anion Gap 7 (3-11) 11/18/23 10:18 BUN 14 mg/dl (6-23) 11/18/23 10:18 Creatinine 1.02 mg/dl (0.6-1.4) 11/18/23 10:18 Est Cr Clr Drug Dosing 82.2 ml/min 11/18/23 10:18 Est GFR ( Amer) 88.4 ml/min 11/18/23 10:18 Est GFR (Non-Af Amer) 76.2 ml/min 11/18/23 10:18 BUN/Creatinine Ratio 13.7 (10-20) 11/18/23 10:18 Glucose 149 mg/dl (70-99(Fasting)) H 11/18/23 10:18 Calcium 7.9 mg/dl (8.6-10.3) L 11/18/23 10:18 Magnesium 2.1 mg/dl (1.7-2.4) 11/15/23 14:35 Total Bilirubin 0.6 mg/dl (0.2-1.0) 11/18/23 10:18 Direct Bilirubin 0.2 mg/dl (0-0.2) 11/18/23 10:18 AST 29 U/L (13-39) 11/18/23 10:18 ALT 45 U/L (7-52) 11/18/23 10:18 Alkaline Phosphatase 162 U/L (34-104) H 11/18/23 10:18 Total Protein 5.6 gm/dl (6.0-8.3) L 11/18/23 10:18 Albumin 2.9 gm/dl (3.4-5.0) L 11/18/23 10:18 Globulin 2.8 gm/dl (2.5-4.0) 11/16/23 06:52 Albumin/Globulin Ratio 1.1 (0.9-2) 11/16/23 06:52 Lipase 12 U/L (11-82) 11/15/23 14:35 Urine Color Dark Yellow 11/15/23 14:35 Urine Appearance Cloudy (Clear) A 11/15/23 14:35 Urine pH 5.5 (4.5-7.5) 11/15/23 14:35 Ur Specific [place] 1.025 (1.000-1.030) 11/15/23 14:35 Urine Protein 1+ (Negative) H 11/15/23 14:35 Urine Glucose (UA) Negative (Negative) 11/15/23 14:35 Urine Ketones 1+ (Negative) H 11/15/23 14:35 Urine Blood 3+ (Negative) H 11/15/23 14:35 Urine Nitrite Positive (Negative) A 11/15/23 14:35 Urine Bilirubin Negative (Negative) 11/15/23 14:35 Urine Urobilinogen Positive (Negative) H 11/15/23 14:35 Ur Leukocyte Esterase 2+ (Negative) H 11/15/23 14:35 Urine WBC (Auto) >30 /hpf (0-5) H 11/15/23 14:35 Urine RBC (Auto) 5-10 /hpf (0-4) H 11/15/23 14:35 U Hyaline Cast (Auto) 1-5 /lpf (0-5) 11/15/23 14:35 U Epithel Cells (Auto) 0-5 /lpf (0-5) 11/15/23 14:35 Urine Bacteria (Auto) 4+ (Negative) H 11/15/23 14:35 Impressions Scrotum Ultrasound 11/15/23 14:21 SCROTAL ULTRASOUND CLINICAL HISTORY: Right groin pain COMPARISON STUDY: CT of the abdomen and pelvis August 07, 2020. TECHNIQUE: Grayscale and color and duplex Doppler sonography of the scrotum was performed. FINDINGS: The right testis measures 3.3 x 3.2 cm and the left measures 3.4 x 2.5 x 1.9 cm. Color flow within each testis is symmetric. There is no testicular mass. A few tiny bilateral epididymal cysts are noted. There is mild hypervascularity of the right epididymal tail. A few benign right inguinal lymph nodes were noted. No right groin abnormality was identified. IMPRESSION: 1. Normal sonographic appearance of the testes. 2. Mild hypervascularity of the right epididymal tail. This favors epididymitis. ACT 112: Negative or not required by law. Electronically signed by: Carlitos Prescott M.D. 11/15/2023 5:04 PM Abdomen/Pelvis CT 11/15/23 18:07 CT SCAN OF THE ABDOMEN AND PELVIS WITH IV CONTRAST CLINICAL HISTORY: Right flank pain. COMPARISON STUDY: Abdominal CT dated 08/07/2020. TECHNIQUE: Following the IV administration of 86 cc of Optiray 320, CT scan of the abdomen and pelvis is performed from the lung bases to the proximal femora. Images are reviewed in the axial, sagittal, and coronal planes. IV contrast was administered without complication. A dose lowering technique was utilized adhering to the principles of ALARA. CT DOSE: 1403.75 mGy.cm FINDINGS: Lung bases: The heart is normal in size and without pericardial effusion. The lung bases are clear noting bibasilar atelectasis. There is a small hiatal hernia. Liver: The contrast-enhanced liver is normal in size, contour, and attenuation. There is no intrahepatic biliary ductal dilatation. The hepatic veins and portal veins are patent. Gallbladder: Unremarkable. Spleen: Calcification of the splenic capsule is unchanged. The spleen is mildly enlarged measuring 14.2 cm in length. Pancreas: Unremarkable. Adrenal glands: Unremarkable. Kidneys: The contrast enhanced kidneys are normal in size and without hydronephrosis. The kidneys enhance symmetrically. Urothelial thickening and enhancement is identified involving the distal right ureter. A 2.3 cm cyst is seen on the left. Abdominal vasculature: The abdominal aorta is normal in course and caliber noting mild to moderate atherosclerotic calcification. Bowel: There are scattered colonic diverticula without CT evidence of acute diverticulitis. No bowel obstruction is seen. The appendix is well-visualized and normal. Peritoneum: There is no intraperitoneal free air or abdominal ascites. There is a small fat-containing umbilical hernia. Lymphadenopathy: None. Pelvic viscera: The prostate gland is markedly enlarged and heterogeneous. A multiloculated fluid collection is suggested within the left aspect of the prostate gland on image #380. This measures 3.1 x 2.3 cm and is suspicious for a prostatic abscess. There is periprostatic inflammation. The bladder wall is thickened with pericystic inflammation. There are some vesicles also appear edematous. Skeletal structures: There is mild to moderate lumbosacral spondylosis. No lytic or blastic lesions are seen. IMPRESSION: 1. There is evidence of cystitis/prostatitis with a probable 3.1 cm prostatic abscess. Correlate with clinical findings and urinalysis. 2. Urothelial thickening and enhancement is seen involving the distal right ureter. This may represent ascending urinary tract infection. 3. Mild splenomegaly. 4. Additional findings as above. ACT 112: Negative or not required by law. Electronically signed by: Joel Beltran M.D. 11/15/2023 6:34 PM 11/15/23 14:21 US scrotum/testicle Stat 11/15/23 18:07 CT abd pelvis IV con only Stat Pending Results Patient Have Any Pending Studies at Discharge: No Discharge Instructions Given to Patient (Per Discharging Provider) PLEASE REFER TO YOUR NEW MEDICATION LIST AND FOLLOW INSTRUCTIONS CAREFULLY. YOUR NEW MEDICATIONS INCLUDE: Ciprofloxacin-antibiotic for prostate infection -Monitor for ankle pain, if present, stop this medication and consult your doctor immediately Please take a probiotic daily for at least 2 months. [employer] brand recommended. Include yogurt in your daily diet. Drink plenty of fluids. Maintain Palmer catheter for now until further advice by the urologist upon follow-up. PLEASE CALL YOUR PRIMARY CARE PHYSICIAN OR RETURN TO THE ER IF WITH WORSENING OF SYMPTOMS, INCLUDING Abdominal pain, fever or chills, bloody or cloudy urine output, etc. FOLLOW UP WITH PRIMARY CARE PHYSICIAN OUTLINED ABOVE. FOLLOW-UP WITH UROLOGIST OUTLINED ABOVE. Total Time Total Time Spent Total Time Spent (In Minutes): >30 minutes
== END 2023-11-19 14:23 | disposition home or self-care (01) | DRG 713 ==
LOC: ED 13:55 → 3N 21:37